=== PATIENT | female | born 1930 | race Caucasian/White ===

== ENCOUNTER 2017-11-22 22:14 | Inpatient (IN) | payer MEDICARE, OTHER ==
--- NOTE | 2017-11-22 23:01 | CT ---
CT BRAIN NONCONTRAST: 11/22/17 HISTORY: 87-year-old female with altered mental status. FINDINGS: There is no midline shift or any other mass effect. There is no evidence of acute intracranial hemor rhage, large cortical infarct, obstructive hydrocephalus, or extraaxial fluid collection. The calvar ium is intact. There is diffuse parenchymal volume loss. There are low attenuation areas in the whi te matter. 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 IMPRESSION: 1) No acute intracranial findings. 2) Involutional changes and chronic ischemic white matter changes. jn [] POS: JIN
--- NOTE | 2017-11-22 23:06 | RAD ---
RADIOGRAPH CHEST 1 VIEW: 11/22/17 HISTORY: 87-year-old female with altered mental status. FINDINGS: There is cardiomegaly. There is no evidence of air space density, pulmonary edema, or pneumothorax. T he lateral costophrenic angles are sharp. IMPRESSION: 1) No acute pulmonary findings. 2) Cardiomegaly without congestive heart failure. gretel [] POS: JIN
[2017-11-22 23:16] LABS: #Monocytes 0.9 thou/uL (0.11-0.59); #Neutrophils 5.5 thou/uL (1.40-6.50); %Basophils 0.5 % (0.0-1.0); %Eosinophils 0.1 % (0.0-10.0); %Lymphocytes 31.9 % (21.0-51.0); %Monocytes 9.3 % (0.0-10.0); %Neutrophils 58.1 % (42.0-75.0); Mean Corpuscular HGB CONC 33.7 g/dL (32.0-36.0); Mean Corpuscular Hemoglobin 29.1 pg (27.0-31.0); Mean Corpuscular Volume 86.4 fl (81.0-99.0); Mean Platelet Volume 6.4 fL (7.4-10.4); Platelet Count 325 thou/uL (130-400); RBC Distribution Width 13.2 % (11.5-14.5); Red Blood Cell (RBC) Count 3.44 mill/uL (4.20-5.40); White Blood Cell (WBC) Count 9.4 thou/uL (4.8-10.8)
[2017-11-22 23:38] LABS: ALT (SGPT) 8 U/L (8-55); AST (SGOT) 11 U/L (5-34); Alkaline Phosphatase 92 U/L (40-150); Anion Gap 13 mmol/L (10-20); BUN (Urea Nitrogen) 26 mg/dL (9.8-20.1); Bilirubin, Total 0.5 mg/dL (0.2-1.2); CK (CPK) 34 U/L (29-168); Calc. Creatinine Clearance 0 mL/min (70-130); Calcium 8.6 mg/dL (7.8-10.44); Carbon Dioxide 23 mmol/L (23-31); Chloride 92 mmol/L (98-107); Estimated GFR-MDRD 50; Globulin 3.1 g/dL (2.4-3.5); Glucose 115 mg/dL (83-110); Potassium 4.5 mmol/L (3.5-5.1); Protein, Total 7.1 g/dL (6.0-8.3); Sodium 123 mmol/L (136-145)
[2017-11-22 23:46] LABS: CKMB 0.6 ng/mL (0-6.6); Troponin I Less than 0.010 ng/mL (< 0.028)
[2017-11-22 23:47] LABS: Bilirubin Negative (Negative); Blood, Urine Trace (Negative); Clarity CLOUDY (Clear); Glucose, Urine (Dipstick) Negative (Negative); Leukocyte Large (Negative); Nitrite Negative (Negative); Protein, Urine (Dipstick) 30 mg/dL (Neg-Trace); Urobilinogen 0.2 mg/dL (0.2-1.0)
[2017-11-22 23:49] LABS: Bacteria/HPF 4+ HPF (None Seen); Squamous Epithelial None Seen HPF (0-3)
[2017-11-22 23:58] LABS: Pathc Cast-AUWi Flag 5.51 (0-2.49)
[2017-11-23 00:07] LABS: Hyaline Casts/LPF 0-3 HYALINE CAST LPF (0-3 Hyaline); Manual Microscopic Reviewed? No Path Casts Seen; RBC/HPF None Seen HPF (0-3)
[2017-11-23] MEDS ORDERED: Sodium Chloride 0.9% 1,000 ML IV SCH (01:57)
[2017-11-23] MEDS ORDERED: Ondansetron ODT 4 MG TAB SL PRN (01:57)
[2017-11-23] MEDS ORDERED: Acetaminophen 325 MG TAB PO PRN (01:57)
[2017-11-23] MEDS ORDERED: Ondansetron HCl/PF 4 MG/2 ML Vial IVP PRN (01:57)
[2017-11-23 02:18] VITALS: BMI 24.5
[2017-11-23] MEDS ORDERED: Prevnar 13-Val Conj/PF 0.5 ML SYRINGE IM ONE (09:00)
[2017-11-23] MEDS ORDERED: Guaifenesin DM 100-10/5 ML UDCUP PO PRN (10:38)
--- NOTE | 2017-11-23 13:02 | HP ---
REASON FOR ADMISSION: Altered mental state, hyponatremia, urinary tract infection, and compression fracture. HISTORY OF PRESENTING ILLNESS: Please note majority of this history is obtained by talking to patient's daughter who is here at bedside. The patient apparently got diagnosed with compression fracture 2 weeks back. She had gone to see Dr. Silverman, her primary care physician and had an MRI done which confirmed the same. She is waiting for a specialist appointment on the . The patient was on tramadol for pain and also had recent urinary tract infection for which she was on ciprofloxacin. She was having trouble getting up and was using wheelchair from last two weeks. She normally walks by herself and is fully oriented and takes care of herself. Yesterday, she got disoriented and became very lethargic and drowsy. No complaints of any specific weakness as such. Currently, she is coming around this morning. She is able to recognize her kids at bedside. She is able to name her grandkids at present. Still feels weak. No complaints of chest pain, palpitation, PND or orthopnea. No complaints of fever as such now. PAST MEDICAL AND SURGICAL HISTORY: Compression fracture diagnosed 2 weeks back , hypertension, dyslipidemia, GERD, frequent urinary tract infections, right leg surgery for fracture, left leg surgery for femoral fracture, right arm surgery done 20 years ago for fracture, appendectomy. CURRENT MEDICATIONS: The patient is on Norvasc 5 mg daily, atenolol 50 mg twice daily, Pravachol 40 mg at bedtime, losartan 100 mg daily, Ultram 50 mg q.4 hourly p.r.n., Protonix 40 mg daily, ciprofloxacin 500 mg twice daily. ALLERGIES: CODEINE, KEFLEX, PENICILLIN, and SULFA. PERSONAL HISTORY: Does not abuse alcohol or drugs. No history of smoking. She lives by herself and is and independent of activities of daily living prior to her sustaining compression fracture 2 weeks ago. FAMILY HISTORY: Mother of colon cancer in her 50s. Father when she was very little. He was suspected to have myocardial infarction. REVIEW OF SYSTEMS: The following complete review of systems was negative, unless otherwise mentioned in the HPI or below: Constitutional: Weight loss or gain, ability to conduct usual activities. Skin: Rash, itching. Eyes: Double vision, pain. ENT/Mouth: Nose bleeding, neck stiffness, pain, tenderness. Cardiovascular: Palpitations, dyspnea on exertion, orthopnea. Respiratory: Shortness of breath, wheezing, cough, hemoptysis, fever or night sweats. Gastrointestinal: Poor appetite, abdominal pain, heartburn, nausea, vomiting, constipation, or diarrhea. Genitourinary: Urgency, frequency, dysuria, nocturia. Musculoskeletal: Pain, swelling. Neurologic/Psychiatric: Anxiety, depression. Allergy/Immunologic: Skin rash, bleeding tendency. PHYSICAL EXAMINATION: GENERAL: The patient is an 87-year-old female who is currently not in any acute distress. VITAL SIGNS: Blood pressure 120/40, pulse 68 per minute, respiratory rate 18 per minute, temperature 98.9 degrees Fahrenheit, saturating 99% on room air. NECK: Supple, no elevated JVD. EYES: Extraocular muscles intact. Pupils reacting to light. ORAL CAVITY: Mucous membranes are dry. No exudates or congestion. CARDIOVASCULAR SYSTEM: S1, S2 heard. Regular rhythm. RESPIRATORY SYSTEM: Air entry 1+ bilaterally. No rales or rhonchi. ABDOMEN: Soft, bowel sounds heard. No tenderness, rigidity or guarding. EXTREMITIES: No peripheral edema or calf tenderness. VASCULAR SYSTEM: Peripheral pulses 1+ bilateral, no ischemic ulcerations or gangrene. CENTRAL NERVOUS SYSTEM: No gross focal deficits seen. Patient is lethargic, but fairly oriented at present. PSYCHIATRIC SYSTEM: The patient's mood is euthymic. No hallucinations or delusions. LABORATORY DATA AND IMAGING DATA: White count of 9, hemoglobin and hematocrit 10 and 29, platelet count 325 with 58% neutrophils, MCV is 86. Sodium 123, serum bicarbonate 23, chloride 92, BUN 26, creatinine 1.0. Serum glucose 115. Cardiac enzymes x1 negative. TSH 1.04, albumin is 4.0. UA shows large leukocyte esterase with more than 50 wbc's and 4+ bacteria. Chest x-ray done shows mild cardiomegaly; otherwise no acute infiltrate. CT brain done shows no acute intracranial findings. CLINICAL IMPRESSION AND PLAN: The patient is being admitted to medical floor for acute encephalopathy, urinary tract infection, severe dehydration, and hyponatremia. We will gently hydrate her with normal saline at 70 mL per hour. The patient also might be sensitive for Ultram and we will switch her over to lidocaine patch along with Motrin 400 mg twice daily. We will continue her ciprofloxacin. We will obtain a urine culture. We will also continue her atenolol and Lipitor as before. Neurosurgical consultation with Dr. Heath will be requested for her compression fracture. We will try to obtain her MRI results from Dr. Silverman's office in [place]. We will monitor her electrolytes closely. Code status is FULL. I have discussed this with the patient. The power of grated cheese maker is her daughter. MARIANELA
[2017-11-23] MEDS: Sodium Chloride 0.9% 1,000 ML IV SCH (15:06)
[2017-11-23] MEDS: Lidocaine 5% Patch TD SCH (15:06)
[2017-11-23] MEDS ORDERED: Atenolol 50 MG TAB PO SCH (18:30)
[2017-11-23] MEDS: Ibuprofen 200 MG TAB PO SCH (20:53)
[2017-11-23] MEDS: Ciprofloxacin 500 MG TAB PO SCH (20:53)
[2017-11-23] MEDS: Atorvastatin Calcium 10 MG TAB PO SCH (20:53)
[2017-11-23] MEDS: Docusate 100 MG CAP PO SCH (20:53)
[2017-11-23] MEDS ORDERED: Famotidine 20 MG TAB PO SCH (21:00)
--- NOTE | 2017-11-23 22:39 | CON ---
DATE OF CONSULTATION: 11/23/2017 Dick Varela PA-C dictating for Dr. Rex Heath. This is a 30-minute initial patient evaluation, which greater than 50% of the exam was spent in couns eling and coordinating patient's care. Remainder of the exam was spent in review of patient's medica l records and appropriate imaging studies. CHIEF COMPLAINT: Altered mental status and low back pain. HISTORY OF PRESENT ILLNESS: Ms. Aburto is a pleasant 87-year-old female, who originally presented wi th altered mental status and dehydration. She was later found to have negative head CT, but dehydrat ion and UTI. She also complained of some back pain and informed the admitting physician that she has a known L3 burst fracture. She was evaluated by her primary care provider, who ordered an MRI of th e lumbar spine at [facility]. Review of this shows perhaps a component of acute L3 burst fractur e without significant retropulsion into the canal or significant stenosis of the canal. She currentl y complains of some occasional right anterior thigh pain, although this is significantly improved sin ce resting while in the hospital over the past several hours. She complains of minimal low back pain . Her daughter helps to provide a majority of the history. She states that the patient is less inte ractive and less verbal than she normally is. PHYSICAL EXAMINATION: The patient is awake, alert, and attempts to be appropriate. Her GCS currentl y is 15, although, she is intermittently confused. She is oriented to person and [place], but believes she is in the hospital in [place] and that the year is 1988 and it is Sunday. She does have good strength in the bilateral upper and bilateral lower extremities with intact sensation to light touch throughout. She has no worrisome myelopathic features on exam including negative Spence's bilateral ly and no increased tone. Gait was not tested. DIAGNOSIS: L3 burst fracture with low back pain and occasional right anterior thigh pain. PLAN: I have discussed the patient's case and imaging with Dr. Heath. At this time, we will order a clamshell TLSO brace to be fitted by [facility]. The patient will wear this anytime she is out of bed. I would like them to hold on mobilizing until the patient is fitted for a brace. Once she has been f itted, we would like her to work diligently with physical therapy. Highly unlikely that the patient will require surgery for this fracture given the fact that there is no malalignment of the fracture a nd that she has significant osteoporosis, makes her a poor spinal fusion candidate. I discussed this in great detail with the patient and her family and they are appreciative of the workup. At this ti me, no need for repeat studies and we will arrange for a 2-week followup in our outpatient clinic, bu t we will continue to follow the patient intermittently while she is in the hospital. Please call wi th any questions or changes in patient's exam.
[2017-11-24] MEDS: Lidocaine Patch Removal 1 EACH TOP SCH (01:05)
[2017-11-24] MEDS: Sodium Chloride 0.9% 1,000 ML IV SCH ×2 (01:46→05:11)
[2017-11-24] MEDS: Ciprofloxacin 500 MG TAB PO SCH ×2 (05:12→20:05)
[2017-11-24 05:21] LABS: #Eosinphils 0.1 thou/uL (0.0-0.7); #Lymphocytes 2.2 thou/uL (1.20-3.40); #Monocytes 0.7 thou/uL (0.11-0.59); #Neutrophils 3.8 thou/uL (1.40-6.50); %Basophils 0.2 % (0.0-1.0); %Eosinophils 1.2 % (0.0-10.0); %Lymphocytes 32.6 % (21.0-51.0); %Monocytes 10.6 % (0.0-10.0); %Neutrophils 55.4 % (42.0-75.0); Hemoglobin 9.2 g/dL (12.0-16.0); Mean Corpuscular HGB CONC 33.7 g/dL (32.0-36.0); Mean Corpuscular Hemoglobin 29.2 pg (27.0-31.0); Mean Corpuscular Volume 86.6 fl (81.0-99.0); Mean Platelet Volume 6.4 fL (7.4-10.4); Platelet Count 263 thou/uL (130-400); RBC Distribution Width 13.2 % (11.5-14.5); Red Blood Cell (RBC) Count 3.15 mill/uL (4.20-5.40); White Blood Cell (WBC) Count 6.8 thou/uL (4.8-10.8)
[2017-11-24 05:28] LABS: Anion Gap 10 mmol/L (10-20); BUN (Urea Nitrogen) 15 mg/dL (9.8-20.1); Calc. Creatinine Clearance 52 mL/min (70-130); Calcium 7.9 mg/dL (7.8-10.44); Carbon Dioxide 21 mmol/L (23-31); Chloride 102 mmol/L (98-107); Estimated GFR-MDRD 69; Glucose 104 mg/dL (83-110); Potassium 4.3 mmol/L (3.5-5.1); Sodium 129 mmol/L (136-145)
[2017-11-24] MEDS: Atenolol 50 MG TAB PO SCH (08:56)
[2017-11-24] MEDS: Enoxaparin Sodium 40 MG/0.4 ML SYRINGE SC SCH (08:57)
[2017-11-24] MEDS: Ibuprofen 200 MG TAB PO SCH ×2 (08:57→20:06)
[2017-11-24] MEDS: Docusate 100 MG CAP PO SCH ×2 (08:57→20:05)
--- NOTE | 2017-11-24 13:55 | PDOC.PN ---
- Subjective Encounter Start Date: 11/24/17 Encounter Start Time: 10:20 Subjective: awake and oriented -: feels better -: is tolerating oral diet now - Objective Resuscitation Status: Resuscitation Status FULL:Full Resuscitation MAR Reviewed: Yes Vital Signs & Weight: Vital Signs (12 hours) Temp Pulse Resp BP BP Pulse Ox 11/24/17 08:56 72 153/72 H 11/24/17 08:34 97.5 F L 72 16 153/65 H 98 11/24/17 08:00 97.5 F L 72 16 11/24/17 05:00 98.5 F 72 18 131/62 99 Weight Weight 138 lb 7 oz I&O: 11/23/17 11/24/17 11/25/17 06:59 06:59 06:59 Intake Total 740 Balance 740 Result Diagrams: 11/24/17 05:03 11/24/17 05:03 Phys Exam - Physical Examination HEENT: PERRLA, moist MMs Neck: no JVD, supple Respiratory: no wheezing, no rales Cardiovascular: RRR, no significant murmur Gastrointestinal: soft, non-tender, positive bowel sounds Musculoskeletal: no edema, pulses present Neurological: non-focal, moves all 4 limbs Psychiatric: normal affect, A&O x 3 Dx/Plan (1) Acute encephalopathy Code(s): G93.40 - ENCEPHALOPATHY, UNSPECIFIED Status: Resolved (2) Severe dehydration Code(s): E86.0 - DEHYDRATION Status: Resolved (3) Hyponatremia Code(s): E87.1 - HYPO-OSMOLALITY AND HYPONATREMIA Status: Acute Comment: resolving (4) L3 vertebral fracture Code(s): S32.039A - UNSP FRACTURE OF THIRD LUMBAR VERTEBRA, INIT FOR CLOS FX Status: Acute Qualifiers: Encounter type: subsequent encounter Fracture type: closed Fracture morphology: burst- stable (5) HTN (hypertension) Code(s): I10 - ESSENTIAL (PRIMARY) HYPERTENSION Status: Chronic Qualifiers: Hypertension type: essential hypertension Qualified Code(s): I10 - Essential (primary) hypertension - Plan has tslo brace fitted -: to amb with PT as tolerated, rehab eval -: pain is better on motrin bid and lidocaine patch -: encourage po intake -: sodium has come up to 129, dc iv fluids, family updated at bedside * . Review of Systems - Medications/Allergies Allergies/Adverse Reactions: Allergies Allergy/AdvReac Type Severity Reaction Status Date / Time cephalexin [From Keflex] Allergy Verified 11/23/17 02:14 codeine Allergy Verified 11/23/17 02:14 Penicillins Allergy Verified 11/23/17 02:14 Sulfa (Sulfonamide Allergy Verified 11/23/17 02:14 Antibiotics) Medications: Current Medications Acetaminophen (Tylenol) 650 mg PO Q4H PRN PRN Reason: Headache/Fever or Pain Atenolol (Tenormin) 50 mg PO DAILY [facility] Last Admin: 11/24/17 08:56 Dose: 50 mg Atorvastatin Calcium (Lipitor) 10 mg PO HS [facility] Last Admin: 11/23/17 20:53 Dose: 10 mg Ciprofloxacin (Cipro) 500 mg PO 0600,2000 [facility] Last Admin: 11/24/17 05:12 Dose: 500 mg Docusate Sodium (Colace) 100 mg PO BID [facility] Last Admin: 11/24/17 08:57 Dose: 100 mg Enoxaparin Sodium (Lovenox) 40 mg SC 0900 [facility] Last Admin: 11/24/17 08:57 Dose: 40 mg Famotidine (Pepcid) 20 mg PO Q24HR [facility] Last Admin: 11/23/17 20:53 Dose: 20 mg Guaifenesin/Dextromethorphan (Robitussin Dm) 15 ml PO Q4H PRN PRN Reason: Cough Sodium Chloride (Normal Saline 0.9%) 1,000 mls @ 70 mls/hr IV .[id number] [facility] Last Admin: 11/24/17 05:11 Dose: 1,000 mls Ibuprofen (Motrin) 400 mg PO BID [facility] Last Admin: 11/24/17 08:57 Dose: 400 mg Lidocaine (Lidoderm 5% Patch) 1 patch TD 1300 [facility] Last Admin: 11/23/17 15:06 Dose: 1 patch Miscellaneous Medication (Lidocaine Patch Removal) 1 each TOP 0100 [facility] Last Admin: 11/24/17 01:05 Dose: 1 each
--- NOTE | 2017-11-24 14:52 | PRG ---
DATE OF SERVICE: 11/24/2017 This is a 30-minute note, in which 30 minutes were spent in review of the imaging record, evaluation, examination of the patient, and formulation of a plan. Greater than 50% of the time was spent on co unseling on Digna Aburto. CHIEF COMPLAINT: L3 burst fracture. HISTORY OF PRESENT ILLNESS: I reviewed the notes of my colleague Dick Varela PA-C, and agree wit h its content. Ms. Aburto is an 87-year-old woman, who sustained a fall and an L3 fracture. She pre sented with altered mental status and urinary tract infection. She already had followup set up with us. We have arranged for brace. There is minimal retropulsion, and while there is moderate loss of height, there is no worry. There is no worrisome Matthews angle deformity. She has neurologically been at her baseline, moving her extremities. IMPRESSION AND PLAN: I will arrange followup in my clinic in 10 days with x-rays upright AP and late ral lumbar spine x-rays. She will wear a brace whenever she is out of bed. I will see her in 10 day s. DIAGNOSIS: L3 fracture.
[2017-11-24] MEDS: Lidocaine 5% Patch TD SCH (17:08)
[2017-11-24] MEDS: Atorvastatin Calcium 10 MG TAB PO SCH (20:05)
[2017-11-24] MEDS: Famotidine 20 MG TAB PO SCH (20:05)
[2017-11-24] MEDS ORDERED: Famotidine 20 MG TAB PO SCH (21:00)
[2017-11-25] MEDS: Acetaminophen 325 MG TAB PO PRN (03:05)
[2017-11-25] MEDS: Lidocaine Patch Removal 1 EACH TOP SCH (03:07)
[2017-11-25] MEDS: Ciprofloxacin 500 MG TAB PO SCH ×2 (05:09→20:30)
[2017-11-25 05:12] LABS: #Basophils 0.1 thou/uL (0.0-0.2); #Eosinphils 0.2 thou/uL (0.0-0.7); #Lymphocytes 2.1 thou/uL (1.20-3.40); #Monocytes 0.6 thou/uL (0.11-0.59); %Basophils 0.9 % (0.0-1.0); %Eosinophils 3.1 % (0.0-10.0); %Lymphocytes 35.3 % (21.0-51.0); %Monocytes 10.5 % (0.0-10.0); %Neutrophils 50.2 % (42.0-75.0); Hemoglobin 9.5 g/dL (12.0-16.0); Mean Corpuscular HGB CONC 35.2 g/dL (32.0-36.0); Mean Corpuscular Hemoglobin 31.1 pg (27.0-31.0); Mean Corpuscular Volume 88.4 fl (81.0-99.0); Platelet Count 270 thou/uL (130-400); Red Blood Cell (RBC) Count 3.03 mill/uL (4.20-5.40)
[2017-11-25 05:22] LABS: Anion Gap 12 mmol/L (10-20); BUN (Urea Nitrogen) 15 mg/dL (9.8-20.1); Calc. Creatinine Clearance 47 mL/min (70-130); Calcium 8.3 mg/dL (7.8-10.44); Carbon Dioxide 21 mmol/L (23-31); Chloride 101 mmol/L (98-107); Estimated GFR-MDRD 62; Glucose 102 mg/dL (83-110); Potassium 4.4 mmol/L (3.5-5.1); Sodium 130 mmol/L (136-145)
[2017-11-25] MEDS: Atenolol 50 MG TAB PO SCH (07:38)
[2017-11-25] MEDS: Docusate 100 MG CAP PO SCH ×2 (07:38→20:30)
[2017-11-25] MEDS: Enoxaparin Sodium 40 MG/0.4 ML SYRINGE SC SCH (07:39)
[2017-11-25] MEDS: Ibuprofen 200 MG TAB PO SCH ×2 (07:39→20:31)
[2017-11-25] MEDS: Sodium Chloride 0.9% 1,000 ML IV SCH (07:43)
[2017-11-25] MEDS: Lidocaine 5% Patch TD SCH (14:38)
--- NOTE | 2017-11-25 15:14 | PDOC.PN ---
- Subjective Encounter Start Date: 11/25/17 Encounter Start Time: 10:00 Pt seen for followup re: UTI. Denies chest pain, shortness of breath, fevers or chills. - Objective Resuscitation Status: Resuscitation Status FULL:Full Resuscitation MAR Reviewed: Yes Vital Signs & Weight: Vital Signs (12 hours) Temp Pulse Resp BP BP Pulse Ox 11/25/17 07:44 98.3 F 75 16 11/25/17 07:40 98.3 F 75 16 151/67 H 98 11/25/17 07:38 75 151/67 H 11/25/17 03:45 97.3 F L 70 18 131/73 97 Weight Weight 138 lb 7 oz Result Diagrams: 11/26/17 09:35 11/26/17 09:35 Additional Labs: Labs reviewed by me Phys Exam - Physical Examination Constitutional: NAD HEENT: moist MMs Neck: supple Respiratory: clear to auscultation bilateral Cardiovascular: RRR Gastrointestinal: soft Musculoskeletal: pulses present Neurological: moves all 4 limbs Psychiatric: normal affect Dx/Plan (1) UTI (urinary tract infection) Status: Acute Comment: continue ciprofloxacin, await cultures (2) L3 vertebral fracture Code(s): S32.039A - UNSP FRACTURE OF THIRD LUMBAR VERTEBRA, INIT FOR CLOS FX Status: Acute Qualifiers: Encounter type: subsequent encounter Fracture type: closed Fracture morphology: burst- stable Comment: to followup with neurosurgery service as outpatient (3) HTN (hypertension) Code(s): I10 - ESSENTIAL (PRIMARY) HYPERTENSION Status: Chronic Qualifiers: Hypertension type: essential hypertension Qualified Code(s): I10 - Essential (primary) hypertension Comment: Monitor vital signs, titrate antihypertensives as needed (4) Hyponatremia Code(s): E87.1 - HYPO-OSMOLALITY AND HYPONATREMIA Status: Acute Comment: sodium improving, 130 today (5) Acute encephalopathy Code(s): G93.40 - ENCEPHALOPATHY, UNSPECIFIED Status: Resolved - Plan * . Review of Systems - Review of Systems Respiratory: negative: Cough, Shortness of Breath, Hemoptysis, SOB with Excertion, Pleuritic Pain, Wheezing Cardiovascular: negative: chest pain, palpitations, orthopnea, paroxysmal nocturnal dyspnea, edema, light headedness, other - Medications/Allergies Allergies/Adverse Reactions: Allergies Allergy/AdvReac Type Severity Reaction Status Date / Time cephalexin [From Keflex] Allergy Verified 11/23/17 02:14 codeine Allergy Verified 11/23/17 02:14 Penicillins Allergy Verified 11/23/17 02:14 Sulfa (Sulfonamide Allergy Verified 11/23/17 02:14 Antibiotics) Medications: Current Medications Acetaminophen (Tylenol) 650 mg PO Q4H PRN PRN Reason: Headache/Fever or Pain Last Admin: 11/25/17 03:05 Dose: 650 mg Atenolol (Tenormin) 50 mg PO DAILY [facility] Last Admin: 11/25/17 07:38 Dose: 50 mg Atorvastatin Calcium (Lipitor) 10 mg PO HS [facility] Last Admin: 11/24/17 20:05 Dose: 10 mg Ciprofloxacin (Cipro) 500 mg PO 0600,2000 [facility] Last Admin: 11/25/17 05:09 Dose: 500 mg Docusate Sodium (Colace) 100 mg PO BID [facility] Last Admin: 11/25/17 07:38 Dose: 100 mg Enoxaparin Sodium (Lovenox) 40 mg SC 0900 [facility] Last Admin: 11/25/17 07:39 Dose: Not Given Famotidine (Pepcid) 20 mg PO 2100 [facility] Last Admin: 11/24/17 20:05 Dose: 20 mg Guaifenesin/Dextromethorphan (Robitussin Dm) 15 ml PO Q4H PRN PRN Reason: Cough Ibuprofen (Motrin) 400 mg PO BID [facility] Last Admin: 11/25/17 07:39 Dose: Not Given Lidocaine (Lidoderm 5% Patch) 1 patch TD 1300 [facility] Last Admin: 11/25/17 14:38 Dose: 1 patch Miscellaneous Medication (Lidocaine Patch Removal) 1 each TOP 0100 [facility] Last Admin: 11/25/17 03:07 Dose: 1 each
[2017-11-25] MEDS: Famotidine 20 MG TAB PO SCH (20:29)
[2017-11-25] MEDS: Atorvastatin Calcium 10 MG TAB PO SCH (20:30)
[2017-11-26] MEDS: Lidocaine Patch Removal 1 EACH TOP SCH (02:14)
[2017-11-26] MEDS: Ciprofloxacin 500 MG TAB PO SCH (05:24)
[2017-11-26] MEDS: Docusate 100 MG CAP PO SCH (08:17)
[2017-11-26] MEDS: Ibuprofen 200 MG TAB PO SCH (08:18)
[2017-11-26] MEDS: Enoxaparin Sodium 40 MG/0.4 ML SYRINGE SC SCH (08:19)
[2017-11-26] MEDS: Acetaminophen 325 MG TAB PO PRN ×2 (08:25→16:33)
[2017-11-26] MEDS: Atenolol 50 MG TAB PO SCH (08:40)
[2017-11-26] MEDS ORDERED: Nitrofurantoin Monohyd/M-Cryst 100 MG CAP PO SCH ×3 (09:15→21:00)
[2017-11-26 09:44] LABS: #Eosinphils 0.1 thou/uL (0.0-0.7); #Monocytes 0.7 thou/uL (0.11-0.59); #Neutrophils 4.5 thou/uL (1.40-6.50); %Basophils 0.4 % (0.0-1.0); %Monocytes 9.1 % (0.0-10.0); %Neutrophils 61.5 % (42.0-75.0); Mean Corpuscular Hemoglobin 29.4 pg (27.0-31.0); Mean Corpuscular Volume 88.9 fl (81.0-99.0); Mean Platelet Volume 6.8 fL (7.4-10.4); Platelet Count 320 thou/uL (130-400); RBC Distribution Width 13.2 % (11.5-14.5); Red Blood Cell (RBC) Count 3.39 mill/uL (4.20-5.40); White Blood Cell (WBC) Count 7.3 thou/uL (4.8-10.8)
[2017-11-26 10:06] LABS: Anion Gap 14 mmol/L (10-20); BUN (Urea Nitrogen) 17 mg/dL (9.8-20.1); Calc. Creatinine Clearance 38 mL/min (70-130); Calcium 8.8 mg/dL (7.8-10.44); Carbon Dioxide 21 mmol/L (23-31); Chloride 100 mmol/L (98-107); Estimated GFR-MDRD 48; Glucose 134 mg/dL (83-110); Potassium 3.9 mmol/L (3.5-5.1); Sodium 131 mmol/L (136-145)
[2017-11-26] MEDS: Lidocaine 5% Patch TD SCH (12:49)
[2017-11-26 16:54] VITALS: BP 146/73; TEMP 98.7
--- NOTE | 2017-11-27 02:24 | DIS ---
DATE OF ADMISSION: 11/23/2017 DATE OF DISCHARGE: 11/26/2017 PRIMARY CARE PROVIDER: [facility]. DISCHARGE DIAGNOSES: 1. Acute encephalopathy. 2. Urinary tract infection. 3. Hyponatremia. 4. L3 vertebral compression fractures. CONDITION OF THE PATIENT ON THE DAY OF DISCHARGE: Stable. I assessed Ms. Aburto on the day of disch arge. She denies any chest pain or shortness of breath. Vital signs are stable. S1 and S2 are hear d, regular. Lungs are clear to auscultation bilaterally. CONSULTATIONS DURING THIS HOSPITALIZATION: Neurosurgery, Dr. Rex Heath. DISCHARGE MEDICATIONS: Nitrofurantoin 100 mg 2 times a day for 13 more doses, Tylenol 650 mg every 4 hours as needed, atenolol 50 mg daily, calcitonin 3.7 mL nasal spray as directed, Colace 100 mg 2 ti mes a day, lidocaine 5% patch daily, Protonix 40 mg daily, and pravastatin 40 mg at bedtime. HOSPITAL COURSE: Ms. Aburto is a pleasant 87-year-old lady who was admitted to [facility] for acute encephalopathy and urinary tract infection. She had a preexisting L3 vertebra l fracture. She was initially treated with ciprofloxacin. Urine cultures grew Escherichia coli that were resistant to fluoroquinolones and ampicillin, but sensitive to amikacin, cefepime, cefoxitin, c eftazidime, ceftriaxone, gentamicin, meropenem, nitrofurantoin, Zosyn, tobramycin, and trimethoprim/s ulfamethoxazole. She has been started on Macrobid. She was seen by Neurosurgery for L3 vertebral fracture. She was fitted with a TLSO brace. Neurosurg katharine will arrange follow up in clinic in 10 days with x-rays upright AP and lateral lumbar spine x-ray s. She will need to wear the brace whenever she is out of bed. She was evaluated by rehabilitation services and has been accepted for inpatient rehabilitation. She is being discharged to [facility] for further management. She was also hyponatremic during this hospitalization. Her tramadol was stopped and she was started on lidocaine patch. Sodium level gradually improved to 131 on the day of discharge, from 123 on 09/2017. She had a normal TSH during this hospitalization. Many thanks for allowing me to participate in your patient's care. Please feel free to contact me wi th any questions or concerns. DISCHARGE DESTINATION: [facility]. TOTAL AMOUNT OF TIME SPENT COORDINATING THIS DISCHARGE: Thirty-three minutes.
== END 2017-11-26 18:07 | DRG 689 ==
LOC: ERS 22:14 → T4-B 11-23 00:19
PROVIDERS: ADMIT Internal Medicine; ATTEND Internal Medicine
DX: N39.0 Urinary tract infection, site not specified (principal); G93.40 Encephalopathy, unspecified; E87.1 Hypo-osmolality and hyponatremia; S32.031A Stable burst fracture of third lumbar vertebra, initial encounter for closed fracture; I10 Essential (primary) hypertension; E86.0 Dehydration; E78.5 Hyperlipidemia, unspecified; K21.9 Gastro-esophageal reflux disease without esophagitis; W19.XXXA Unspecified fall, initial encounter; Z79.899 Other long term (current) drug therapy; Z88.5 Allergy status to narcotic agent; Z88.0 Allergy status to penicillin; Z88.2 Allergy status to sulfonamides
CPT/HCPCS: 36415; 51701; 70450; 71045; 80048; 80053; 81003; 81015; 82274; 82553; 84443; 84484; 85025; 87040; 87077; 87081; 87086; 87186; 93005; 94760; 96365; A4353; G8978-GP-CL; G8979-GP-CJ; G8987-GO-CK; G8988-GO-CJ; J1650; J1956; L0639

== ENCOUNTER 2017-12-05 14:37 | Outpatient (CLI) | payer MEDICARE, OTHER ==
--- NOTE | 2017-12-05 15:43 | RAD ---
TWO VIEWS LUMBAR SPINE: 12/05/17 HISTORY: Lumbar burst fracture, S32.001A. AP and lateral views lumbar spine demonstrate a high grade compression fracture of the L3 vertebral b amirah. There is mild anterolisthesis of S1 on S2. There is also superior end plate compression fracture of the L1 vertebral body. There is loss of the normal lordotic curvature of the lumbar spine. Marked atherosclerotic calcification of the abdominal aorta is seen. IMPRESSION: 1. Superior end plate compression fracture of L1. 2. Severe compression fracture of the L3 vertebral body. 3. Mild anterolisthesis of S1 and S2. POS: [facility]
== END 2017-12-05 14:38 | disposition home or self-care (01) ==
LOC: TBSIIMAG 14:37
PROVIDERS: ATTEND Surgery
DX: S32.011A Stable burst fracture of first lumbar vertebra, initial encounter for closed fracture (principal); S32.031A Stable burst fracture of third lumbar vertebra, initial encounter for closed fracture; M43.18 Spondylolisthesis, sacral and sacrococcygeal region
CPT/HCPCS: 72100

== ENCOUNTER 2018-02-06 13:26 | Outpatient (CLI) | payer MEDICARE, OTHER ==
--- NOTE | 2018-02-06 14:16 | RAD ---
2 VIEWS LUMBOSACRAL SPINE: Date: 02/06/18 COMPARISON: 12/05/17. HISTORY: Low back pain and compression fracture. FINDINGS: Two views of the lumbosacral spine with standing were performed. The patient has a compression fractu re of the L3 vertebral body with approximately 75% anterior height loss. This is unchanged compared t o the prior examination. The vertebral bodies demonstrate normal alignment without subluxation. Small to moderate osteophytes are seen at the thoracolumbar junction. IMPRESSION: Stable compression fracture of L3. POS: [facility]
== END 2018-02-06 13:27 | disposition home or self-care (01) ==
LOC: TBSIIMAG 13:26
PROVIDERS: ATTEND Surgery
DX: M80.88XA Other osteoporosis with current pathological fracture, vertebra(e), initial encounter for fracture (principal); S32.039A Unspecified fracture of third lumbar vertebra, initial encounter for closed fracture
CPT/HCPCS: 72100

== ENCOUNTER 2018-09-08 17:42 | Inpatient (IN) | payer MEDICARE, OTHER ==
[2018-09-08] MEDS ORDERED: Atropine Sulfate 1 mg/10 ml Syringe ONE (17:54)
[2018-09-08 19:57] LABS: Bilirubin Negative (Negative); Blood, Urine Negative (Negative); Clarity CLOUDY (Clear); Glucose, Urine (Dipstick) Negative (Negative); Leukocyte Small (Negative); Nitrite Negative (Negative); Protein, Urine (Dipstick) Trace mg/dL (Neg-Trace); Specific Gravity, Urine 1.021 (1.002-1.036); Urobilinogen 0.2 mg/dL (0.2-1.0); pH, Urine 5.5 (5.0-9.0)
[2018-09-08 20:00] LABS: Bacteria/HPF 4+ HPF (None Seen); RBC/HPF 0-3 HPF (0-3); WBC/HPF 21-50 HPF (0-3); Yeast-AUWi Flag 4.9 (0-25.0)
[2018-09-08 20:02] LABS: Hyaline Casts/LPF 0-3 HYALINE CAST LPF (0-3 Hyaline); Manual Microscopic Reviewed? No Path Casts Seen; Pathc Cast-AUWi Flag 3.48 (0-2.49)
[2018-09-08 20:09] LABS: Troponin I 0.042 ng/mL (< 0.028)
[2018-09-08] MEDS ORDERED: Acetaminophen 325 MG TAB ONE (21:06)
[2018-09-08] MEDS ORDERED: Ondansetron ODT 4 MG TAB PO PRN (21:40)
[2018-09-08] MEDS ORDERED: Ondansetron PF 4 MG/2 ML Vial IVP PRN (21:40)
[2018-09-08 23:24] LABS: CKMB 3.7 ng/mL (0-6.6)
[2018-09-09 00:08] VITALS: BMI 26.8
[2018-09-09] MEDS: Acetaminophen 325 MG TAB PO PRN ×4 (00:16→23:41)
[2018-09-09 05:01] LABS: #Basophils 0.1 thou/uL (0.0-0.2); #Eosinphils 0.1 thou/uL (0.0-0.7); #Lymphocytes 2.4 thou/uL (1.20-3.40); #Monocytes 1.1 thou/uL (0.11-0.59); #Neutrophils 5.8 thou/uL (1.40-6.50); %Basophils 0.6 % (0.0-1.0); %Eosinophils 0.9 % (0.0-10.0); %Lymphocytes 25.2 % (21.0-51.0); %Monocytes 11.5 % (0.0-10.0); %Neutrophils 61.8 % (42.0-75.0); Hemoglobin 9.1 g/dL (12.0-16.0); Mean Corpuscular HGB CONC 33.1 g/dL (32.0-36.0); Mean Corpuscular Hemoglobin 29.6 pg (27.0-31.0); Mean Corpuscular Volume 89.5 fL (78.0-98.0); Mean Platelet Volume 8.8 fL (7.4-10.4); Platelet Count 142 thou/uL (130-400); RBC Distribution Width 13.4 % (11.5-14.5); Red Blood Cell (RBC) Count 3.07 mill/uL (4.20-5.40); White Blood Cell (WBC) Count 9.4 thou/uL (4.8-10.8)
[2018-09-09 05:19] LABS: Anion Gap 17 mmol/L (10-20); BUN (Urea Nitrogen) 45 mg/dL (9.8-20.1); Calc. Creatinine Clearance 20 mL/min (70-130); Calcium 8.9 mg/dL (7.8-10.44); Carbon Dioxide 14 mmol/L (23-31); Chloride 102 mmol/L (98-107); Estimated GFR-MDRD 22; Glucose 95 mg/dL (83-110); Potassium 4.1 mmol/L (3.5-5.1); Sodium 129 mmol/L (136-145)
--- NOTE | 2018-09-09 05:48 | HP ---
PRIMARY CARE DOCTOR: The patient goes to the [facility]. CODE STATUS: DNR/DNI. TIME OF EVALUATION: 7:30 p.m. CHIEF COMPLAINT: Syncope and bradycardia. HISTORY OF PRESENT ILLNESS: This is an 88-year-old female patient. The patient has a past medical history of hyperlipidemia, hypertension, frequent UTIs, anemia, squamous cell carcinoma, basal cell carcinoma. The patient came to the hospital after having an episode of syncope. The patient passed out associated with bradycardia. Symptoms improved with atropine. No clear triggers, symptoms started suddenly. REVIEW OF SYSTEMS: CONSTITUTIONAL: No fever, chills, or generalized weakness. RESPIRATORY: No cough, sputum production, or shortness of breath. CARDIOVASCULAR: No chest pain or palpitation. GASTROINTESTINAL: No nausea. No vomiting, diarrhea, or abdominal pain. ALMOND PASTE MIXER: No dizziness, headache, or feeling lightheaded. The patient has syncope. GENITOURINARY: No burning on urination. EXTREMITIES: No leg swelling. All other systems were reviewed and negative except for the findings mentioned above. PAST MEDICAL HISTORY: As mentioned in HPI. PAST SURGICAL HISTORY: Right leg surgery, left leg surgery, right arm surgery, appendectomy, colonoscopy, skin biopsy , total hip arthroplasty. PSYCH HISTORY: No psych history. SOCIAL HISTORY: No alcohol. No drugs. No smoking history. KNOWN ALLERGIES: Cephalexin, codeine, penicillin, sulfa. REPORTED MEDICATIONS: 1. Tylenol. 2. Amlodipine. 3. Atenolol. 4. Aspirin. 5. Calcium. 6. Gabapentin. 7. Losartan. 8. . 9. Raloxifene. 10. VESIcare. PHYSICAL EXAMINATION: VITAL SIGNS: On presentation, blood pressure was 123/38 with heart rate of 40, respiratory rate was 18, temperature 97.4, oxygen saturation 95 on room air. GENERAL APPEARANCE: The patient is alert, oriented, not in acute distress. HEENT: Eyes, normal conjunctivae. Moist oral mucosa. Anicteric. NECK: No JVD. RESPIRATORY: Bilateral air entry. No rales. No wheezes. Symmetric expansion. CARDIOVASCULAR: The patient has been bradycardic. Regular rhythm. No murmurs. No gallops. Mild leg edema. ABDOMEN: Soft. Normal bowel sounds. MUSCULOSKELETAL: Baseline range of motion and strength. No tenderness. SKIN: Warm and intact. No pallor. No rash. No redness. Peripheral pulses are present. Capillary refill seems to be intact. NEUROLOGIC: No evidence of any new focal weakness. Baseline speech. Cranial nerves seem to be intact. PSYCH: The patient has good mood. No anxiety. Optimal judgment. LABORATORY DATA: EKG was reviewed. The patient has junctional bradycardia at the rate of 40, ND indeterminate, QRS 90, QT corrected 418. Last reviewed GFR was 22. Glucose 122, BUN 42, creatinine 2.27, sodium 130, potassium 4.2, chloride 102, carbon dioxide was 13, calcium 9.1, bilirubin 0.4, alkaline phosphatase 59. LFTs were normal. Troponin was normal. White count 12.7, hemoglobin 9.7, hematocrit 29.3, MCV 86.7, platelet count 189. Chest x-ray, moderate cardiomegaly with no overt congestive heart failure. No acute cardiopulmonary process. Chest x-ray was reviewed. The patient has moderate cardiomegaly, mild aortic knob atherosclerosis, and chronic left lung small calcified granuloma. No acute infiltrate, central vascular congestion, pneumothorax, or pleural effusion. No acute soft tissue or osseous abnormalities identified. ASSESSMENT AND PLAN: The patient will be placed in the hospital with following medical problems: 1. Syncope with junctional bradycardia. The patient has responded to atropine, that will be continued to be given. For now, we will consult Cardiology and will follow their recommendations. The patient may need pacemaker. 2. Urinary tract infection. The patient has positive urine. We will treat the patient with antibiotic. 3. Acute kidney injury. The patient has elevated BUN and creatinine. Last creatinine is 2.27 prior to transfer, and in previous records the creatinine was normal. We will give some hydration. We will monitor kidney failure, we will treat accordingly. 4. Hyponatremia. Sodium 130, this is mild, we will treat accordingly. We will monitor. 5. Severe metabolic acidosis with CO2 of 13. This is likely due to acute kidney injury. 6. Controlled hypertension. We will reconcile home medications. We will treat accordingly. We would not treat aggressively as the patient has been getting hypotensive due to bradycardia. 7. Hyperlipidemia. Low-cholesterol diet is advised. Reconcile home medications. 8. Deep venous thrombosis prophylaxis. Job ID: [id number]
[2018-09-09] MEDS: Enoxaparin Sodium 40 MG/0.4 ML SYRINGE SC SCH (09:14)
--- NOTE | 2018-09-09 09:22 | PDOC.PULCN ---
Pulmonology Consult: HPI - Date of Consult Date: 09/09/18 Time: 09:00 - Consult Details Reason for Consult: bradycardia Requesting Physician: margarita - History of Present Illness HPI: NAMAN BERKOWITZ is a 88 year-old F w/ PMH including anemia, htn, and hld who comes in after having 2 syncopal episodes this weekend. She states she was standing up and all the sudden felt weak and fell to the ground. This happened on both sunday and sunday, she was able to get right back up on Sunday and so she did not come in. On sunday she thinks she may have lost consciousness but does not think it was for long. She called for help because she could not get back up and was taken to the ED. She states this has never happened in the past. Denies chest pain. Has mild sob. No fevers, chills, sweats or cough. She states she has been told she had a slow heart rate in the past. Dr. Temple's addendum: Pt seen and examined with Dr. Mendez. I have independently confirmed findings of history and physical. Pt presenting with 2 syncopal episodes. Had episode of SVT followed by 10 sec sinus pause and resumption of junctional rhythm at 40 while we were talking to her at bedside. Her beta zana is being held. She will be placed on backup external pacemaker as needed, until a pacemaker is put in later today. aware. Pt's levaquin will be changed to rocephin, due to possible cardiac effects of levaquin. She has a pcn allergy which is itching. Agree with A/P above. 50 minutes time, >50% spent with patient and on unit. Pulmonology Consult: ROS - Review of Systems All systems: reviewed and no additional remarkable complaints except as stated Constitutional: negative: fever, chills, sweats Cardiovascular: light headedness. negative: chest pain, palpitations, edema Respiratory: short of breath. negative: chest tightness, pain on deep breathing , non-productive cough, productive cough, wheezing Pulmonology Consult: PMH Source: patient Past Medical History: HTN, HLD, anemia, SCC of the nose, BCC, recurrent UTIs PSH: rt femur fx, lumbar compression fx - Family History Pertinent family history: father of suspected PA at young age mother of colon cancer at age 50 - Social History Smoking Status: Never smoker Alcohol Use: none Drug Use History: none Living Situation: independent Pulmonology Consult: Meds - Medications MAR Reviewed: Yes Medications: Current Medications Acetaminophen (Tylenol) 650 mg PO Q4H PRN PRN Reason: Headache/Fever/Mild Pain (1-3) Last Admin: 09/09/18 06:59 Dose: 650 mg Enoxaparin Sodium (Lovenox) 40 mg SC 0900 [facility] Last Admin: 09/09/18 09:14 Dose: 40 mg Levofloxacin 750 mg/ Device 150 mls @ 100 mls/hr IVPB Q24HR YASMINE Last Admin: 09/09/18 02:28 Dose: Not Given Ondansetron HCl (Zofran Odt) 4 mg PO Q6H PRN PRN Reason: Nausea/Vomiting Ondansetron HCl (Zofran) 4 mg IVP Q6H PRN PRN Reason: Nausea/Vomiting - Allergies Allergies/Adverse Reactions: Allergies Allergy/AdvReac Type Severity Reaction Status Date / Time cephalexin [From Keflex] Allergy Verified 11/23/17 02:14 codeine Allergy Verified 11/23/17 02:14 Penicillins Allergy Verified 11/23/17 02:14 Sulfa (Sulfonamide Allergy Verified 11/23/17 02:14 Antibiotics) Pulmonology Consult: PE - Physical Exam Constitutional: NAD HEENT: PERRLA, moist MMs Cardiovascular: no significant murmur Deviation from normal: bradycardia, regular rhythm Respiratory: clear to auscultation anteriorly, clear to auscultation bilaterally. negative: decreased breath sounds, stridor, wheezes Gastrointestinal: soft, non-tender, no distention, positive bowel sounds Musculoskeletal: no edema, pulses present Neurological: non-focal, moves all 4 limbs Psychiatric: normal affect, A&O x 3 Skin: no rash, cap refill <2 seconds Pulmonology Consult: Results - Labs Result Diagrams: 09/09/18 04:44 09/09/18 04:44 Pulmonology Consult: A/P - Problem (1) Symptomatic bradycardia Current Visit: Yes Code(s): R00.1 - BRADYCARDIA, UNSPECIFIED Status: Acute (2) Junctional rhythm Current Visit: Yes Code(s): I49.8 - OTHER SPECIFIED CARDIAC ARRHYTHMIAS Status: Acute (3) HTN (hypertension) Current Visit: No Code(s): I10 - ESSENTIAL (PRIMARY) HYPERTENSION Status: Chronic Qualifiers: Hypertension type: essential hypertension Qualified Code(s): I10 - Essential (primary) hypertension - Time Time: 50% of the time was spent in coordination of care (as documented) at patient's floor/unit and/or counseling patient. Time with Patient: greater than 50 minutes - Plan Plan: This is a 69 yo F being admitted for syncope 2/2 junctional bradycardia . 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
[2018-09-09] MEDS ORDERED: Clindamycin/D5W 600 mg/50 ml Premix Bag ONE ×2 (11:33→13:49)
[2018-09-09] MEDS: cefTRIAXone\\ROCEPHIN 1 GM in Sodium Chloride 0.9% 100 ML IVPB SCH (11:53)
--- NOTE | 2018-09-09 13:43 | CON ---
DATE OF CONSULTATION: 09/09/2018 INDICATION FOR CONSULTATION: An 88-year-old female with symptomatic bradycardia and junctional escape rhythm. HISTORY OF PRESENT ILLNESS: Ms. Aburto is a very pleasant female, who I have followed for many years now. She is now 88 years old. She was last seen in the office back in May 2018, at which time she presented for yearly followup. At that time, she had carotid artery evaluation, which showed some plaque in the bilateral carotid arteries with internal carotid artery less than 50%. She did not have any significant symptoms. She had an echocardiogram last in April 2017, which showed a normal ejection fraction about 60% with moderate mitral and tricuspid valve regurgitation, mild aortic valve sclerosis, and some thickening of the anterior mitral valve leaflet. Otherwise, she has been doing quite well. Her last EKG showed a sinus rhythm with a heart rate of approximately 63 beats per minute without any acute changes. She has had no history of coronary artery disease in the past. She does have a history of hypertension and hyperlipidemia. She has been at home apparently recently and Sunday not feeling very well. She had some diarrhea. She then became very dizzy, lightheaded, somewhat short of breath when she got up and then it was noted to have severe bradycardia or she noted her heart rate is going fast with palpitations. She presented to the emergency room, at which time she was noted to have bradycardia with junctional rhythm with heart rates in 30s and 40s. She was then admitted to the hospital for observation or at least to the telemetry for observation. She continued throughout the night to have bradycardia with some episodes of tachy-arlette, some episodes of SVT. This morning, she had an episode of SVT and then was it broke. She had a significant pause more than 5 seconds and almost had syncopal episode. Since that time she has had some more bradycardia and also the heart rates anywhere between 30s to 90s. When the heart rate is very slow, she also becomes lightheaded. She is advised at this time to undergo a dual-chamber pacemaker insertion. She has been on beta-blockers in the past. Her last dose of beta zana was yesterday morning. This would not however be significant enough to cause this kind of conduction abnormalities. She was given 40 mg of subcu Lovenox this morning. PAST MEDICAL HISTORY: She denies any chest pain, and has no shortness of breath at this time. PAST MEDICAL HISTORY: Significant for hypertension, hyperlipidemia, and osteoporosis. She has had leg fracture. She has had surgery on the leg for the fracture. She has had a broken wrist. She has had a colonoscopy and back surgery. ALLERGIES: SHE IS ALLERGIC TO SULFA, PENICILLIN, KEFLEX, AND CODEINE. FAMILY HISTORY: Noncontributory. SOCIAL HISTORY: She lives at home. She has no alcohol or tobacco abuse. She is a . MEDICATIONS: Prior to admission include: 1. Evista. 2. Losartan 100 mg daily. 3. Norvasc 5 mg a day. 4. Atenolol 50 mg, which is being held. She was taken twice a day. 5. Protonix 40 mg a day. 6. Pravastatin 20 mg a day. 7. Ferrous sulfate 325 mg two tablets a day. 8. Calcium. 9. Vitamin D3 and B12. 10. Cranberry. 11. Aspirin 81 mg a day. REVIEW OF SYSTEMS: A 12-point review of systems, she does complain of the some diarrhea and some shortness of breath and dizziness. Otherwise, 12-point review of systems is unremarkable. PHYSICAL EXAMINATION: GENERAL: Reveals an elderly female, who is in no acute distress. She is alert and oriented, very sharp for someone of her age. VITAL SIGNS: Her blood pressure is 131/45, heart rate is anywhere between 30 to 90, but often is in the 30s, respiratory rate 15, and O2 saturations are 97%. HEENT: Shows the head to be normocephalic and atraumatic. She does have bilateral carotid bruits noted. As noted from the recent vascular study, this is not critical. CHEST: Clear to auscultation. CARDIOVASCULAR: Reveals a bradycardia. She has a very soft systolic murmur at the apex. ABDOMEN: Soft and nontender. Positive bowel sounds are present. EXTREMITIES: Showed no clubbing, cyanosis, or edema. Pedal pulses are present. NEUROLOGIC: The patient appears to be fully intact. There are no gross focal motor deficits. DIAGNOSTIC DATA: EKG shows a junctional escape rhythm with a heart rate in the 40s. LABORATORY DATA: Hemoglobin is 9.1, WBC of 9.4, platelet count 142,000. Sodium was 129, potassium 4.1, BUN is 45, creatinine of 2.1. Troponin I is indeterminate at 0.042 and 0.038. This is likely due to demand ischemia. Also, her renal function is elevated most likely due to decreased perfusion. IMPRESSION: 1. 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 She will be advised to undergo pacemaker insertion on a rather urgent basis. She did have Lovenox this morning only 40 mg for DVT prophylaxis dose. I did explain to her the procedure, the risks of bleeding, infection, possible pneumothorax, hemothorax, or even possibly . She understands the plan for pacemaker insertion later today. 2. History of hypertension. This is under good control at this time. 3. History of hypercholesterolemia. We will resume her medications after the procedure. 4. History of arthritis and osteoporosis. She will continue on her present medications for this. 5. Carotid artery stenosis. This was performed and her last carotid study was performed in May 2018, which did not show any significant stenosis of the carotids less than 50% bilaterally internal carotid artery stenosis. Job ID: [id number]
[2018-09-09] MEDS ORDERED: Midazolam HCl 2 mg/2 ml Vial ONE (16:20)
--- NOTE | 2018-09-09 17:37 | PRG ---
DATE OF SERVICE: 09/09/2018 SUBJECTIVE: The patient states she feels okay at the moment. She is not having any specific concerns. Anxious to get a procedure done. OBJECTIVE: VITAL SIGNS: Temperature 98, pulse 84 down to 41, BP 165/59, and O2 saturation 94% on room air. GENERAL APPEARANCE: Age-appropriate female, in no distress. She is awake, alert, oriented, pleasant, and cooperative. HEART: Regular rate and rhythm without murmurs, gallops, or rubs. LUNGS: Clear to auscultation bilaterally with good chest wall expansion and air exchange. ABDOMEN: Soft, nontender, and nondistended. Positive bowel sounds. No masses. No organomegaly. EXTREMITIES: Warm and dry with no cyanosis, clubbing, or edema. NEUROLOGIC: The patient appears appropriate and intact. She has normal affect and normal behavior. LABORATORY DATA: White count 9.4, hemoglobin 9.1. Sodium 129, potassium 4.1, chloride 102, CO2 is 14, BUN 45, and creatinine is 2.1. IMPRESSION AND PLAN: 1. 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 She had had her beta blockers held. Plan is for pacemaker placement this afternoon with Cardiology. 2. Acute renal failure. The patient's creatinine has typically been normal and now it is significantly elevated with prerenal numbers. It is possibly some hypoperfusion because of her tachy-arlette syndrome. I would avoid giving her significant fluids in order to avoid any type of failure symptoms. However, she will need some fluids after the pacemaker was placed. If she does not improve with fluids, we will need to be mindful to monitor for any obstructive uropathy. The patient has recently been placed on some type of anticholinergic for bladder control issues. 3. Hyponatremia. The patient has chronic hyponatremia, appears to be stable at her baseline. 4. Metabolic acidosis, likely due to renal insufficiency. We will continue monitor with fluids. 5. Hypertension, well controlled. Beta-blockers held. 6. Hyperlipidemia. Continue home medications. Job ID: [id number]
--- NOTE | 2018-09-09 17:57 | RAD ---
FRONTAL VIEW CHEST: Date: 09/09/18 COMPARISON: 11/22/17. INDICATION: Status post cardiac pacing device placement. FINDINGS: There is a dual lead left subclavian approach cardiac pacing device. Leads overlie the expected regio n of the right atrium and right ventricle. No significant postprocedure pneumothorax is seen. There i s enlargement of the cardiac silhouette and pulmonary vasculature. Extrinsic artifacts limit detail. Vascular calcifications present. IMPRESSION: Left subclavian approach cardiac pacing device. No significant postprocedural pneumothorax visualized . POS: JORGE ALBERTO
[2018-09-09] MEDS: Atenolol 50 MG TAB PO SCH (18:06)
[2018-09-09] MEDS: Sodium Chloride 0.9% 1,000 ML IV SCH (18:06)
[2018-09-10 05:21] LABS: #Eosinphils 0.1 thou/uL (0.0-0.7); #Lymphocytes 2.3 thou/uL (1.20-3.40); #Monocytes 1.1 thou/uL (0.11-0.59); #Neutrophils 6.6 thou/uL (1.40-6.50); %Basophils 0.3 % (0.0-1.0); %Eosinophils 1.1 % (0.0-10.0); %Lymphocytes 23.1 % (21.0-51.0); %Monocytes 10.7 % (0.0-10.0); %Neutrophils 64.9 % (42.0-75.0); Hemoglobin 9.7 g/dL (12.0-16.0); Mean Corpuscular HGB CONC 33.9 g/dL (32.0-36.0); Mean Corpuscular Hemoglobin 29.6 pg (27.0-31.0); Mean Corpuscular Volume 87.1 fL (78.0-98.0); Mean Platelet Volume 8.3 fL (7.4-10.4); Platelet Count 151 thou/uL (130-400); RBC Distribution Width 13.6 % (11.5-14.5); Red Blood Cell (RBC) Count 3.27 mill/uL (4.20-5.40); White Blood Cell (WBC) Count 10.1 thou/uL (4.8-10.8)
[2018-09-10 05:28] LABS: Anion Gap 16 mmol/L (10-20); BUN (Urea Nitrogen) 29 mg/dL (9.8-20.1); Calc. Creatinine Clearance 33 mL/min (70-130); Calcium 8.7 mg/dL (7.8-10.44); Carbon Dioxide 14 mmol/L (23-31); Chloride 107 mmol/L (98-107); Estimated GFR-MDRD 39; Glucose 97 mg/dL (83-110); Potassium 4.2 mmol/L (3.5-5.1); Sodium 133 mmol/L (136-145)
--- NOTE | 2018-09-10 07:44 | EKG ---
Test Reason : Blood Pressure : / mmHG Vent. Rate : 040 BPM Atrial Rate : 300 BPM P-R Int : 000 ms QRS Dur : 094 ms QT Int : 474 ms P-R-T Axes : 000 050 070 degrees QTc Int : 386 ms Junctional bradycardia Nonspecific ST abnormality Abnormal ECG When compared with ECG of 08-SEP-2018 17:49, (Unconfirmed) No significant change was found Confirmed by SHIREEN HUYNH ([id number]) on 09/10/2018 7:44:12 AM Referred By: ESTUARDO Confirmed By:SHIREEN HUYNH
[2018-09-10] MEDS: Sodium Chloride 0.9% 1,000 ML IV SCH ×2 (07:59→15:27)
--- NOTE | 2018-09-10 08:05 | PDOC.PULPN ---
Progress Note: Subj/Obj - Subjective Date: 09/10/18 Time: 08:04 Narrative: Doing well. She is a little reluctant to go home - ROS All systems: reviewed and no additional remarkable complaints except as stated - Objective Allergies/Adverse Reactions: Allergies Allergy/AdvReac Type Severity Reaction Status Date / Time cephalexin [From Keflex] Allergy Verified 11/23/17 02:14 codeine Allergy Verified 11/23/17 02:14 Penicillins Allergy Verified 11/23/17 02:14 Sulfa (Sulfonamide Allergy Verified 11/23/17 02:14 Antibiotics) MAR Reviewed: Yes Vital Signs: Vital Signs Temp 98.6 F 09/10/18 03:40 Pulse Resp BP Pulse Ox 95 09/10/18 06:42 Progress Note: Exam - Physical Exam Constitutional: NAD HEENT: PERRLA Neck: no JVD Cardiovascular: RRR Deviation from normal: pacemaker present left upper chest Respiratory: clear to auscultation bilaterally Gastrointestinal: soft, non-tender Musculoskeletal: no edema Neurological: non-focal Lymphatic: no nodes Psychiatric: A&O x 3 Skin: no rash Progress Note: Data - Labs Result Diagrams: 09/10/18 05:09 09/10/18 05:09 - Radiology Interpretation Chest x-ray Additional comments: no pneumothorax Progress Note: A/P - Problems (1) Symptomatic bradycardia Current Visit: Yes Status: Acute Code(s): R00.1 - BRADYCARDIA, UNSPECIFIED (2) Junctional rhythm Current Visit: Yes Status: Acute Code(s): I49.8 - OTHER SPECIFIED CARDIAC ARRHYTHMIAS (3) HTN (hypertension) Current Visit: No Status: Chronic Code(s): I10 - ESSENTIAL (PRIMARY) HYPERTENSION Qualifiers: Hypertension type: essential hypertension Qualified Code(s): I10 - Essential (primary) hypertension - Plan Plan: Bradycardia has resolved with pacemaker placement. Pt can be transferred out of [facility] and perhaps even go home. No pulmonary issues, so I will sign off case.
--- NOTE | 2018-09-10 08:21 | PDOC.CTH ---
Cardiology Progress Note - Subjective The pt seen and examined. No overnight events. No cardiac complaints. - Objective Vital Signs Temp Pulse Ox 09/10/18 06:42 95 09/10/18 03:40 98.6 F 09/09/18 23:53 98.8 F Admit Weight 146 lb 9.6 oz Weight 146 lb 9.6 oz 09/09/18 09/10/18 09/11/18 06:59 06:59 06:59 Intake Total 1000 Output Total 1340 Balance -340 - Physical Examination General/Neuro: alert & oriented x3 Neck: no JVD present Lungs: CTA Heart: RRR Abdomen: soft Extremities: other: (No edema;) - Telemetry Telemetry Rhythm: SR - Labs Result Diagrams: 09/10/18 05:09 09/10/18 05:09 Troponin/CKMB CK-MB (CK-2) 3.7 ng/mL (0-6.6) 09/08/18 22:33 Troponin I 0.038 ng/mL (< 0.028) H 09/08/18 22:33 - Assessment/Plan 1. 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 UTI - managed by PCP 3. HTN - stable 4. SHAHEED - improving 5. Hyperlipidemia - MAR reviewed * From Cardiac standpoint, the pt is stable to d/c home. The pt will f/u within 10 days for the PM site check and within 3 months for initial PM interrogation at ' office. Pt. seen and eval. by me. She is feeling better after pacemaker implant. Chest clear. RRR. Probably home tomorrow. Review of Systems - Review of Systems Constitutional: reports: no symptoms reported EENTM: reports: no symptoms reported Respiratory: reports: no symptoms reported Cardiac (ROS): reports: no symptoms reported ABD/GI: reports: no symptoms reported : reports: no symptoms reported Musculoskeletal: reports: no symptoms reported Skin: reports: no symptoms reported
[2018-09-10] MEDS: Enoxaparin Sodium 40 MG/0.4 ML SYRINGE SC SCH (10:20)
[2018-09-10] MEDS: cefTRIAXone\\ROCEPHIN 1 GM in Sodium Chloride 0.9% 100 ML IVPB SCH (10:21)
[2018-09-10] MEDS: Atenolol 50 MG TAB PO SCH (18:47)
--- NOTE | 2018-09-10 19:39 | CCL ---
DATE OF PROCEDURE: 09/09/18 INDICATION FOR PROCEDURE: An 88-year-old female with a tachy/arlette syndrome with heart rates in the 30s at times with junctiona l rhythm and long pause of more than 5 seconds with presyncopal episodes. She was advised to undergo dual-chamber pacemaker insertion. She was taken to cardiac [facility] lab[facility] where she underwent the procedure today without difficulties or com plications. She was implanted with a dual chamber pacemaker from [employer], an Ang[employer] which is an MRI compatible device with two screw in leads, one in the atrium and the ventricle. The pacemaker was se t with the upper rate of 120 the lower rate was set at 60. There were no difficulties or complicatio ns encountered. She also was given 1 mg of IV versed for conscious sedation during the procedure. Sh e as monitored by an independent observer present for heart rate, blood pressure and O2 saturations. These were all found to be stable.
--- NOTE | 2018-09-10 22:06 | PDOC.PN ---
- Subjective Encounter Start Date: 09/10/18 Encounter Start Time: 13:00 Doing well post PPM placement. - Objective Resuscitation Status - Order Detail: 09/08/18 21:40 Resuscitation Status Routine Resuscitation Status: DNAR: NO Resuscitation Discussed with: discussed with family and patient Vital Signs & Weight: Vital Signs (12 hours) Temp 09/10/18 19:24 98.8 F 09/10/18 16:00 98.3 F 09/10/18 12:00 98.4 F Weight Admit Weight 146 lb 9.6 oz Weight 146 lb 9.6 oz Most Recent Monitor Data Heart Rate from ECG 64 NIBP 145/59 NIBP BP-Mean 87 Respiration from ECG 27 SpO2 100 I&O: 09/09/18 09/10/18 09/11/18 06:59 06:59 06:59 Intake Total 1000 1100 Output Total 1340 900 Balance -340 200 Result Diagrams: 09/10/18 05:09 09/10/18 05:09 Phys Exam - Physical Examination Constitutional: NAD Respiratory: no wheezing, no rales, no rhonchi Cardiovascular: RRR, no significant murmur, no rub Gastrointestinal: soft, non-tender, no distention Musculoskeletal: no edema Bruising at PPM site. No erythema. Dx/Plan (1) Prerenal azotemia Code(s): R79.89 - OTHER SPECIFIED ABNORMAL FINDINGS OF BLOOD CHEMISTRY Status : Acute (2) Symptomatic bradycardia Code(s): R00.1 - BRADYCARDIA, UNSPECIFIED Status: Acute (3) Hyponatremia Code(s): E87.1 - HYPO-OSMOLALITY AND HYPONATREMIA Status: Acute Comment: sodium improving, 130 today (4) HTN (hypertension) Code(s): I10 - ESSENTIAL (PRIMARY) HYPERTENSION Status: Chronic Qualifiers: Hypertension type: essential hypertension Qualified Code(s): I10 - Essential (primary) hypertension Comment: Monitor vital signs, titrate antihypertensives as needed - Plan * Doing well post PPM. ON BB. * Will continue to hydrate and recheck the renal function in am. Unclear if this is related to dehydration from GI sxs or if it was poor forward flow from the bradycardia. Improved today, but not normal.
[2018-09-11] MEDS: Acetaminophen 325 MG TAB PO PRN (01:22)
[2018-09-11 05:59] LABS: #Basophils 0.1 thou/uL (0.0-0.2); #Eosinphils 0.4 thou/uL (0.0-0.7); #Monocytes 0.9 thou/uL (0.11-0.59); #Neutrophils 5.1 thou/uL (1.40-6.50); %Basophils 0.8 % (0.0-1.0); %Eosinophils 4.9 % (0.0-10.0); %Lymphocytes 23.9 % (21.0-51.0); %Monocytes 10.6 % (0.0-10.0); %Neutrophils 59.9 % (42.0-75.0); Hemoglobin 8.9 g/dL (12.0-16.0); Mean Corpuscular HGB CONC 32.6 g/dL (32.0-36.0); Mean Corpuscular Hemoglobin 28.9 pg (27.0-31.0); Mean Corpuscular Volume 88.6 fL (78.0-98.0); Mean Platelet Volume 8.2 fL (7.4-10.4); Platelet Count 183 thou/uL (130-400); RBC Distribution Width 13.7 % (11.5-14.5); Red Blood Cell (RBC) Count 3.09 mill/uL (4.20-5.40); White Blood Cell (WBC) Count 8.5 thou/uL (4.8-10.8)
[2018-09-11] MEDS: Sodium Chloride 0.9% 1,000 ML IV SCH (06:18)
[2018-09-11 06:26] LABS: Anion Gap 11 mmol/L (10-20); BUN (Urea Nitrogen) 15 mg/dL (9.8-20.1); Calc. Creatinine Clearance 48 mL/min (70-130); Calcium 8.3 mg/dL (7.8-10.44); Carbon Dioxide 19 mmol/L (23-31); Chloride 110 mmol/L (98-107); Estimated GFR-MDRD 61; Glucose 96 mg/dL (83-110); Sodium 136 mmol/L (136-145)
--- NOTE | 2018-09-11 08:00 | EKG ---
Test Reason : Blood Pressure : / mmHG Vent. Rate : 069 BPM Atrial Rate : 069 BPM P-R Int : 216 ms QRS Dur : 102 ms QT Int : 440 ms P-R-T Axes : 079 059 073 degrees QTc Int : 471 ms Sinus rhythm with 1st degree A-V block Otherwise normal ECG When compared with ECG of 09-SEP-2018 10:28, Sinus rhythm has replaced Junctional rhythm Vent. rate has increased BY 29 BPM QT has lengthened Confirmed by SHIREEN HUYNH ([id number]) on 09/11/2018 8:00:18 AM Referred By: SOLANGE Confirmed By:SHIREEN HUYNH
[2018-09-11] MEDS: Enoxaparin Sodium 40 MG/0.4 ML SYRINGE SC SCH (09:12)
[2018-09-11 09:30] VITALS: TEMP 97.8
--- NOTE | 2018-09-11 10:02 | PDOC.CTH ---
Cardiology Progress Note - Subjective The pt seen and examined. No overnight events. No cardiac complaints. - Objective Vital Signs Temp BP 09/11/18 08:00 97.8 F 149/70 H 09/11/18 04:00 99.0 F 09/11/18 00:00 97.9 F Admit Weight 146 lb 9.6 oz Weight 146 lb 9.6 oz 09/10/18 09/11/18 09/12/18 06:59 06:59 06:59 Intake Total 1000 1910 Output Total 1340 1880 Balance -340 30 - Physical Examination General/Neuro: alert & oriented x3 Neck: no JVD present Lungs: CTA Heart: RRR Abdomen: soft Extremities: other: (No edema) - Telemetry Telemetry Rhythm: SR - Labs Result Diagrams: 09/11/18 05:34 09/11/18 05:34 Troponin/CKMB CK-MB (CK-2) 3.7 ng/mL (0-6.6) 09/08/18 22:33 Troponin I 0.038 ng/mL (< 0.028) H 09/08/18 22:33 - Assessment/Plan 1. S/p PM placement 08/24 SSS - stable; the site is FLAKITO, no hematoma, but no s/s of infection or drainage; 2. UTI - managed by PCP 3. HTN - stable 4. SHAHEED - improved with IV NS 5. Hyperlipidemia - MAR reviewed * From Cardiac standpoint, the pt is stable to d/c home. The pt will f/u within 10 days for the PM site check and within 3 months for initial PM interrogation at ' office. Pt. seen and eval. by me. I agree with the A/P by the STRING WINDING MACHINE OPERATOR. Chest clear. RRR. Pacemaker site looks good. Review of Systems - Review of Systems Constitutional: reports: no symptoms reported EENTM: reports: no symptoms reported Respiratory: reports: no symptoms reported Cardiac (ROS): reports: no symptoms reported ABD/GI: reports: no symptoms reported : reports: no symptoms reported Musculoskeletal: reports: no symptoms reported
[2018-09-11] MEDS: cefTRIAXone\\ROCEPHIN 1 GM in Sodium Chloride 0.9% 100 ML IVPB SCH (11:33)
[2018-09-11 12:14] VITALS: BP 162/59
[2018-09-11] MEDS ORDERED: Nitrofurantoin Monohyd/M-Cryst 100 MG CAP PO SCH (21:00)
--- NOTE | 2018-09-12 11:12 | DIS ---
DATE OF ADMISSION: 09/08/2018 DATE OF DISCHARGE: 09/11/2018 DISCHARGE DIAGNOSES: 1. Symptomatic bradycardia with syncope/near syncope. 2. Prerenal azotemia. 3. Hyponatremia. 4. Hypertension. 5. Urinary tract infection with Escherichia coli. HISTORY: The patient is an 88-year-old female who presented via the emergency department with an episode of syncope. The patient was noted to be bradycardic in the emergency department with a heart rate around 40. She had junctional bradycardia on the EKG. Her BUN was elevated at 42, creatinine was 2.7. Chest x-ray showed some cardiomegaly. HOSPITAL COURSE: The patient was subsequently admitted with syncope secondary to symptomatic bradycardia. She was placed in the emergency department and seen in consultation by who is her internet specialist. The patient had beta blockers withheld and was able to maintain adequate blood pressure, but subsequently underwent pacemaker placement which she tolerated well. She also received some IV fluids and with the fluids and the pacemaker placement, the patient's BUN and creatinine did ultimately normalized back to her baseline renal function. She was able to function adequately and is felt to be stable for discharge to home at that time. PHYSICAL EXAMINATION: VITAL SIGNS: On the day of discharge, temperature is 97.8, pulse 60, respirations 17, O2 saturation is 98% on room air. GENERAL APPEARANCE: Age-appropriate female, in no distress. She was awake, alert, oriented, pleasant, and cooperative. HEART: Regular rate and rhythm without murmurs, gallops, or rubs. LUNGS: Clear to auscultation bilaterally. ABDOMEN: Soft, nontender, and nondistended with positive bowel sounds. No masses. No organomegaly. EXTREMITIES: Warm and dry. SKIN: The pacemaker site appeared healthy. DISPOSITION: The patient is discharged to home. ACTIVITY: As tolerated. DIET: She will remain on a heart healthy diet. DISCHARGE MEDICATIONS: She will be on: 1. Macrobid 100 mg p.o. b.i.d. 2. Pravastatin 40 mg at bedtime. 3. Protonix 40 mg daily. 4. Atenolol 50 mg b.i.d. 5. Tylenol 650 mg q.4 hours p.r.n. 6. VESIcare 5 mg daily. 7. Raloxifene 60 mg daily. 8. Tramadol 50 mg q.4 hours. 9. Losartan 100 mg daily. 10. Gabapentin p.o. at bedtime p.r.n. 11. Amlodipine 10 mg daily. 12. Calcium 600 mg daily. FOLLOWUP: She is to follow up with in 10 days and then [facility]. The patient can return to the emergency department should she have problems prior to the time of discharge. Job ID: [id number]
== END 2018-09-11 16:42 | disposition home or self-care (01) | DRG 243 ==
LOC: ERS 17:42 → ERHOLD 19:01 → IMCU/EMU 09-09 00:01
PROVIDERS: ADMIT Internal Medicine; ATTEND Internal Medicine
PROC: 0JH606Z Insertion of Pacemaker, Dual Chamber into Chest Subcutaneous Tissue and Fascia, Open Approach (ICD-10-PCS; principal; 2018-09-08)
PROC: 02H63JZ Insertion of Pacemaker Lead into Right Atrium, Percutaneous Approach (ICD-10-PCS; 2018-09-08)
PROC: 02HK3JZ Insertion of Pacemaker Lead into Right Ventricle, Percutaneous Approach (ICD-10-PCS; 2018-09-08)
DX: R00.1 Bradycardia, unspecified (principal); E87.1 Hypo-osmolality and hyponatremia; E87.2 Acidosis; N17.9 Acute kidney failure, unspecified; N39.0 Urinary tract infection, site not specified; I10 Essential (primary) hypertension; E78.5 Hyperlipidemia, unspecified; D64.9 Anemia, unspecified; M81.0 Age-related osteoporosis without current pathological fracture; I65.29 Occlusion and stenosis of unspecified carotid artery
CPT/HCPCS: 33208; 36415; 71045; 80048; 81003; 81015; 82553; 84484; 85025; 87077; 87086; 87186; 93005; 93010; 93798; 99152; 99153; C1785; C1898; J0461; J0696; J1650; J1956; J2250; J3370; J3490; J7050

== ENCOUNTER 2018-10-06 20:02 | Inpatient (IN) | payer MEDICARE, OTHER ==
[2018-10-06 23:25] LABS: Anion Gap 16 mmol/L (10-20); BUN (Urea Nitrogen) 17 mg/dL (9.8-20.1); Calc. Creatinine Clearance 0 mL/min (70-130); Calcium 9.1 mg/dL (7.8-10.44); Carbon Dioxide 22 mmol/L (23-31); Chloride 96 mmol/L (98-107); Estimated GFR-MDRD 58; Glucose 118 mg/dL (83-110); Magnesium 1.7 mg/dL (1.6-2.6); Potassium 5.1 mmol/L (3.5-5.1); Sodium 129 mmol/L (136-145)
[2018-10-07] MEDS ORDERED: Ondansetron PF 4 MG/2 ML Vial IVP PRN (00:51)
[2018-10-07] MEDS ORDERED: Ondansetron ODT 4 MG TAB PO PRN (00:51)
[2018-10-07] MEDS ORDERED: Calcium Carbonate 500 MG ChewTAB PO PRN (00:51)
--- NOTE | 2018-10-07 01:11 | HP ---
CHIEF COMPLAINT: Shortness of breath. HISTORY OF PRESENT ILLNESS: The patient is an 88-year-old female with sick sinus syndrome with recent pacemaker placement, presented to the emergency room with shortness of breath. She initially presented to [facility] and was transferred to this facility. Over the last one month, the patient has progressive worsening shortness of breath that got worse over the last 48 hours. She is unable to lie down flat over the last 1 week. This afternoon, she was unable to walk to bathroom. She also noticed bilateral lower extremity swelling. She denies any chest pain, palpitations, lightheadedness, dizziness, or syncope. No diaphoresis, recent immobilization, or travel reported. PAST MEDICAL HISTORY: 1. Sick sinus syndrome, status post recent pacemaker placement. 2. Hypertension. 3. Recent E. coli UTI on Macrobid. 4. GERD. 5. Dyslipidemia. 6. Squamous cell cancer of the skin. 7. Osteoporosis. PAST SURGICAL HISTORY: 1. Recent pacemaker placement. 2. Appendectomy. 3. Colonoscopy. 4. Skin biopsy. 5. Left total hip arthroplasty. 6. Multiple other orthopedic procedures. ALLERGIES: THE PATIENT IS ALLERGIC TO KEFLEX, CODEINE, PENICILLIN, AND SULFA. CURRENT HOME MEDICATIONS: The patient is unable to remember all of her medications. Family to get accurate list of medications in the morning. SOCIAL HISTORY: The patient currently lives at home with her family. She makes her own decision with the help of her daughter. No smoking, alcohol, or drug use reported. 8 years ago. FAMILY HISTORY: Mother of colon cancer in her 50s. REVIEW OF SYSTEMS: All other review of systems were reviewed and were found negative. PHYSICAL EXAMINATION: VITAL SIGNS: Temperature 98.7 with respirations of 22 on ER arrival, pulse rate of 74, blood pressure 158/67, and O2 saturation 92% on room air. The patient was in mild respiratory distress on ER arrival. HEENT: Head, atraumatic and normocephalic. Sclerae anicteric. Moist mucous membrane. No oral lesion. NECK: Supple. No JVD appreciated. No carotid bruit. LUNGS: Showed diminished air entry at bilateral bases. No significant accessory muscle use. There were few bibasilar rales. No rhonchi or wheezing. She was able to speak 6 to word sentences with mild accessory muscle use at [facility]. HEART: S1 and S2 present. Regular rate and rhythm. No significant heaves or pulsation. There is a 2/6 systolic murmur over the mitral area. ABDOMEN: Soft and nontender. Bowel sounds present. EXTREMITIES: 2+ edema in bilateral lower extremity. SKIN: Warm and dry. LYMPH NODES: No palpable lymph nodes in the neck. PERIPHERAL VASCULAR: Radial pulses palpable bilaterally. MUSCULOSKELETAL: No joint swelling or tenderness. LABORATORY FINDINGS: WBC of 14.3 with hemoglobin 9.9, hematocrit 31.9, and platelet 391. Chemistry showed sodium 128, potassium 5.1, chloride 97, bicarb 19, BUN 16 , creatinine 1.0, and glucose of 133. Sodium last admission was between 129 and 136. BNP was 1160. Troponin negative. Lactic acid 1.6. Magnesium 1.7. Urinalysis was negative for WBC bacteria. IMAGING DATA: Chest x-ray by my review showed cardiomegaly with pulmonary vascular congestion and bilateral pleural effusion. EKG by my review showed paced rhythm. IMPRESSION: 1. New onset acute congestive heart failure exacerbation. 2. Sick sinus syndrome, status post recent pacemaker placement. 3. Hypertension. 4. Gastroesophageal reflux disease. 5. Chronic kidney disease, stage 3. 6. Hyponatremia. 7. Metabolic acidosis. 8. Chronic anemia. 9. Hyperlipidemia. PLAN: The patient will be monitored in the telemetry unit with a diagnosis of new onset congestive heart failure exacerbation. Echocardiogram will be obtained. We will consult Cardiology, . We will add fluid restriction. We will confirm home medications and start accordingly. Recheck labs on a daily basis. Heart failure education. Serial troponins. Plan of care was discussed with the patient in detail. She stated understanding. Job ID: [id number] [facility]
[2018-10-07 01:15] LABS: Troponin I Less than 0.010 ng/mL (< 0.028)
[2018-10-07] MEDS ORDERED: Acetaminophen 325 MG TAB ONE (02:56)
[2018-10-07 03:58] LABS: ALT (SGPT) 11 U/L (8-55); AST (SGOT) 16 U/L (5-34); Albumin 3.6 g/dL (3.4-4.8); Alkaline Phosphatase 85 U/L (40-150); Anion Gap 17 mmol/L (10-20); BUN (Urea Nitrogen) 15 mg/dL (9.8-20.1); Bilirubin, Total 0.4 mg/dL (0.2-1.2); Calc. Creatinine Clearance 0 mL/min (70-130); Calcium 9.1 mg/dL (7.8-10.44); Carbon Dioxide 21 mmol/L (23-31); Chloride 96 mmol/L (98-107); Estimated GFR-MDRD 56; Glucose 109 mg/dL (83-110); Magnesium 1.7 mg/dL (1.6-2.6); Potassium 4.6 mmol/L (3.5-5.1); Protein, Total 6.6 g/dL (6.0-8.3); Sodium 129 mmol/L (136-145)
[2018-10-07] MEDS ORDERED: Nitroglycerin 2% Ointment 1 INCH/1 GM Packet ONE ×2 (05:22→08:02)
[2018-10-07] MEDS ORDERED: Furosemide 40 MG/4 ML VIAL ONE (06:30)
[2018-10-07] MEDS ORDERED: Enoxaparin Sodium 40 MG/0.4 ML SYRINGE ONE (08:02)
[2018-10-07] MEDS ORDERED: Aspirin 325 MG TAB ONE (08:02)
[2018-10-07] MEDS ORDERED: Losartan 25 MG TAB PO SCH (09:00)
[2018-10-07] MEDS: Nitroglycerin 2% Ointment 1 INCH/1 GM Packet TOP SCH ×3 (09:01→15:36)
[2018-10-07] MEDS: Aspirin 325 MG TAB PO SCH (09:05)
[2018-10-07] MEDS: Carvedilol 3.125 MG TAB PO SCH ×2 (09:05→16:21)
[2018-10-07] MEDS: Enoxaparin Sodium 40 MG/0.4 ML SYRINGE SC SCH (09:05)
[2018-10-07] MEDS: Senokot S 8.6-50 MG TAB PO SCH ×2 (09:05→20:56)
[2018-10-07] MEDS: Furosemide 40 MG/4 ML VIAL SLOW IVP SCH ×2 (09:36→13:15)
[2018-10-07 09:48] VITALS: BMI 28.9
[2018-10-07] MEDS: Acetaminophen 325 MG TAB PO PRN ×3 (10:34→20:56)
--- NOTE | 2018-10-07 15:36 | PDOC.PN ---
- Subjective Encounter Start Date: 10/07/18 Encounter Start Time: 14:35 Subjective: Patient without any complaints at present. Concerned about her pacemaker -: and an appointment for home visit to have it interrogated for today. -: She denies any complaints at present. States she came in due to fatigue. She tends to feel very worn out every so often and states this seems to be attributed to UTIs. Reports having a pacemaker placed due to bradycardia and has not fully recovered since then in terms of her general strength. She has also been told recently to increase her fluid intake and then told she was drinking too much causing a low sodium. She suffers from chronic anemia and was recently placed on Iron supplements. - Objective Resuscitation Status - Order Detail: 10/07/18 00:51 Resuscitation Status Routine Resuscitation Status: FULL: Full Resuscitation Vital Signs & Weight: Vital Signs (12 hours) Temp Pulse Resp BP Pulse Ox 10/07/18 11:19 93 L 10/07/18 09:53 97.7 F 64 20 150/66 H 95 Weight Weight 158 lb 3 oz Result Diagrams: 10/07/18 03:30 Phys Exam - Physical Examination Constitutional: NAD HEENT: PERRLA, moist MMs, sclera anicteric, oral pharynx no lesions Neck: supple, full ROM Respiratory: no wheezing, no rhonchi decreased breath sounds at bilateral bases Cardiovascular: RRR Gastrointestinal: soft, non-tender, no distention, positive bowel sounds Musculoskeletal: edema present +1 pitting edema in bilateral lower extremities Neurological: normal sensation, moves all 4 limbs Psychiatric: normal affect, A&O x 3 Skin: no rash Dx/Plan (1) Acute on chronic diastolic CHF (congestive heart failure) Code(s): I50.33 - ACUTE ON CHRONIC DIASTOLIC (CONGESTIVE) HEART FAILURE Status : Acute (2) Hyponatremia Code(s): E87.1 - HYPO-OSMOLALITY AND HYPONATREMIA Status: Acute Plan: Stable, continue to monitor Na+. (3) HTN (hypertension) Code(s): I10 - ESSENTIAL (PRIMARY) HYPERTENSION Status: Chronic Qualifiers: Hypertension type: essential hypertension Qualified Code(s): I10 - Essential (primary) hypertension - Plan cont current plan of care, DVT proph w/lovenox CXR with changes consistent with acute exacerbation of CHF and BNP 1,160.5 -: S/p Echo and awaiting cardio review. Interrogate PM. Continue Lasix. -: Resume home meds, monitor BP. -: No urinary symptoms. UA: Nit+, Bacteria 4+. UCx pending. * .
--- NOTE | 2018-10-07 23:51 | CON ---
DATE OF CONSULTATION: PRIMARY CARE PHYSICIAN: Dr. Silverman. PRIMARY REGIONAL ENGAGEMENT CONSULTANT: Janett Mays MD REASON FOR CARDIOLOGY CONSULTATION: New onset of congestive heart failure. HISTORY OF PRESENT ILLNESS: Ms. Aburto is a very present 88-year-old female with significant history of hypertension, hyperlipidemia, pacemaker placement in August 2018 secondary to sick sinus syndrome. She started having breathing problems. She has to catch a breath after mild exertion for at least 1 week. Her breathing started to improve after resting for a little while. However, yesterday, she could not catch a breath well and she also is having worsening of shortness of breath all day yesterday. She decided to present to the emergency department for further evaluation and treatment. She also mentions that she had to sleep on a recliner for few weeks due to worsening of shortness of breath when she is on the supine position. She has not had a good appetite and no energy. She had UTI one month ago. She is on Macrobid, which she is supposed to start taking the medicine from today. She has not seen urologist in [place], his name is Dr. Dillard. She also complained of bilateral lower extremity edema for 1 week, the same time she started having shortness of breath. She denies any chest pain, tightness, discomfort in her chest, palpitation, fluttering in her chest, dizziness, lightheadedness, pressure to the bilateral neck, or any other cardiac complaints. She had echocardiogram done in April 2017 with 60% moderate tricuspid regurgitation, moderate mitral valve regurgitation, mild AV sclerosis, mild pulmonary insufficiency, thickened anterior mitral valve leaflet. She had a stress test done in September 2011, which showed normal. She had carotid Dopplers done in April 2017, shows some mild stenosis in bilateral ICA and anterograde flow. PAST MEDICAL HISTORY: 1. Sick sinus syndrome, status post pacemaker placement. 2. Hypertension. 3. Hyperlipidemia. 4. Urinary tract infection. 5. Squamous cell cancer of the skin. 6. Osteoporosis. 7. GERD. PAST SURGICAL HISTORY: 1. Pacemaker placement. 2. Appendectomy. 3. Leg fracture. 4. Left total hip replacement. 5. L3 compression fracture, 08/29/2017. 6. Colonoscopy. 7. Bilateral broken wrist. FAMILY HISTORY: There are no significant cardiovascular history in her family. SOCIAL HISTORY: She is and retired. She has one daughter who is living well. She denies tobacco, EtOH, or illicit drug abuse. She drinks decaf coffee one cup a day. She does not do exercise regularly since one year ago when she had a back fracture. ALLERGIES: SHE IS ALLERGIC TO KEFLEX, CODEINE, PENICILLIN, AND SULFA. MEDICATION: 1. Pravastatin 40 mg once a day. 2. Protonix 40 mg once a day. 3. Atenolol 50 mg twice a day. 4. Tylenol 650 mg every 4 hours as needed. 5. Evista 60 mg once a day. 6. Tramadol 50 mg every 4 hours as needed. 7. Losartan 100 mg once a day. 8. Gabapentin 300 mg at bedtime. 9. Norvasc 10 mg once a day. 10. Calcium carbonate 600 mg once a day. 11. Macrobid 100 mg twice a day. 12. Aspirin 81 mg once a day. REVIEW OF SYSTEMS: Twelve-point review of systems is negative unless otherwise mentioned in the HPI. She has had several diarrhea few weeks ago. Other than that, she denies constipation, blood in the stool or urine at this moment. PHYSICAL EXAMINATION: VITAL SIGNS: Blood pressure 147/65, heart rate 65, A pacing and V sensing, O2 saturation 93% on 3 L nasal cannula, temperature 97.7, and respiratory rate 20. GENERAL: The patient is alert and oriented x4, nonfocal, in no acute distress. HEENT: Head; normocephalic, atraumatic. Eyes; extraocular muscle movement intact. She wears glasses. ENT; mouth and oral nasal mucosa moist without lesions. NECK: Supple. Normal range of motion. No JVD. RESPIRATORY: Clear to auscultation bilaterally, but diminished at the bases. CARDIOVASCULAR: Regular rate and rhythm. Normal S1 and S2. There are no S3 or S4. No significant. There are significant murmur to the right mid medial sternal borders and appendix area. No thrill or bruit noted. 2+ pulses in bilateral upper and lower extremities. They have 3 pitting edema in the bilateral lower extremities. Carotid pulses are present without bruit or thrill noted. ABDOMEN: Soft, nontender. No mass to palpitate. Bowel sounds are present. SKIN: Warm and dry. No lesion, rash, or hematoma noticed. MUSCULOSKELETAL: The patient is able to move all extremities without difficulty. The patient denied claudication. PSYCHIATRIC: The patient's mood is appropriate. NEUROLOGIC: The patient is alert and oriented x4. Nonfocal. A telemetry record showing the patient with sinus rhythm and occasional A paced and V sensed. Heart rate in the 60s. The patient's chest x-ray shows cardiomegaly, pulmonary vascular congestion, inhaler airspace opacity and bilateral pleural effusion. Findings concern for congestive heart failure. The patient's echocardiogram was done today which shows EF of 50% to 55% and diastolic dysfunction. Moderate dilated left atrium. Mildly enlarged right atrium. Severe mitral valve regurgitation. Severe aortic valve stenosis. Valve area is less than 1 square cm. Mild tricuspid regurgitation, mild pulmonary regurgitation, and left pleural effusion. ASSESSMENT AND PLAN: 1. Acute on chronic diastolic dysfunction. The patient's respiratory condition is improved with Lasix 40 mg IV push twice a day. She is on carvedilol 3.125 mg twice a day and losartan 12.5 mg once a day. We would like to continue current medication. 2. Severe aortic valve stenosis/severe mitral valve regurgitation. We would like to continue to monitor the patient's condition at this moment and possibly the patient need to undergo left and right cardiac catheterization for more evaluation for possible valve replacement. 3. Hypertension. The patient's blood pressure is slightly elevated at this moment. However, she is on Lasix 40 mg IV push twice a day. At this moment, she is on low-dose beta zana and ARB at this moment. We would like to adjust the medicine as appropriate. 4. Status post pacemaker placement. The patient's pacemaker site is clear. No discharge. At this moment, the patient does not have any sick sinus syndrome like symptom at this moment. We would continue to monitor. 5. Urinary tract infection. Urine culture was received and result is pending at this moment. She was prescribed Macrobid by the patient's urologist. She is on this medicine at this time, which is managed by patient's primary care doctor. We would like to continue to monitor. 6. Hyponatremia. If patient's sodium level is still low, we would like to start Samsca, I believe, the medication to make sodium level better. At this moment, we would like to continue to monitor. Thank you very much for allowing the Cardiology Service to participate in the care of this patient. We will follow along with the patient's care team and make further recommendations as appropriate. Job ID: [id number]
[2018-10-08] MEDS: Nitroglycerin 2% Ointment 1 INCH/1 GM Packet TOP SCH (03:26)
[2018-10-08 05:00] LABS: #Basophils 0.1 thou/uL (0.0-0.2); #Eosinphils 0.1 thou/uL (0.0-0.7); #Lymphocytes 2.8 thou/uL (1.20-3.40); #Monocytes 0.8 thou/uL (0.11-0.59); %Basophils 0.8 % (0.0-1.0); %Eosinophils 0.7 % (0.0-10.0); %Lymphocytes 31.7 % (21.0-51.0); %Monocytes 8.9 % (0.0-10.0); %Neutrophils 57.8 % (42.0-75.0); Mean Corpuscular HGB CONC 32.1 g/dL (32.0-36.0); Mean Corpuscular Hemoglobin 27.7 pg (27.0-31.0); Mean Corpuscular Volume 86.5 fL (78.0-98.0); Mean Platelet Volume 7.5 fL (7.4-10.4); Platelet Count 316 thou/uL (130-400); RBC Distribution Width 14.5 % (11.5-14.5); Red Blood Cell (RBC) Count 3.24 mill/uL (4.20-5.40); White Blood Cell (WBC) Count 8.7 thou/uL (4.8-10.8)
[2018-10-08 05:22] LABS: ALT (SGPT) 9 U/L (8-55); AST (SGOT) 12 U/L (5-34); Albumin 3.2 g/dL (3.4-4.8); Alkaline Phosphatase 72 U/L (40-150); Anion Gap 14 mmol/L (10-20); BUN (Urea Nitrogen) 15 mg/dL (9.8-20.1); Bilirubin, Total 0.3 mg/dL (0.2-1.2); Calc. Creatinine Clearance 44 mL/min (70-130); Calcium 8.6 mg/dL (7.8-10.44); Carbon Dioxide 24 mmol/L (23-31); Chloride 96 mmol/L (98-107); Estimated GFR-MDRD 50; Globulin 2.6 g/dL (2.4-3.5); Glucose 89 mg/dL (83-110); Magnesium 1.6 mg/dL (1.6-2.6); Potassium 4.8 mmol/L (3.5-5.1); Protein, Total 5.8 g/dL (6.0-8.3); Sodium 129 mmol/L (136-145)
[2018-10-08] MEDS: Furosemide 40 MG/4 ML VIAL SLOW IVP SCH ×2 (06:28→15:55)
--- NOTE | 2018-10-08 08:35 | RAD ---
FRONTAL VIEW CHEST: COMPARISON: 10/06/2018. INDICATION: Dyspnea. Heart failure. FINDINGS: There are moderate to large bilateral pleural effusions slightly progressed with adjacent parenchymal density. There is enlargement of the cardiac silhouette and engorgement of the pulmonary vasculatur e. Chest is otherwise similar. IMPRESSION: Findings which favor decompensated congestive heart failure with moderate to large bilateral pleural effusions and associated edema. Recommend continued followup. POS: RICH
[2018-10-08] MEDS: Enoxaparin Sodium 40 MG/0.4 ML SYRINGE SC SCH (09:01)
[2018-10-08] MEDS: Aspirin 325 MG TAB PO SCH (09:01)
[2018-10-08] MEDS: Senokot S 8.6-50 MG TAB PO SCH ×2 (09:02→20:18)
[2018-10-08] MEDS ORDERED: Carvedilol 6.25 MG TAB PO SCH (09:45)
[2018-10-08] MEDS: Carvedilol 3.125 MG TAB PO SCH (09:55)
--- NOTE | 2018-10-08 10:07 | PDOC.CTH ---
Cardiology Progress Note - Subjective The pt seen and examined. No overnight events. No cardiac complaints. She still cannot be on supine position 2/ SOB. - Objective Vital Signs Temp Pulse Resp BP Pulse Ox 10/08/18 08:20 98.3 F 69 149/70 H 87 L 10/08/18 04:40 98.5 F 62 18 147/66 H 90 L 10/08/18 03:28 91 L 10/08/18 00:55 63 16 156/70 H 91 L Weight 153 lb 4.8 oz 10/07/18 10/08/18 10/09/18 06:59 06:59 06:59 Intake Total 800 Output Total 1400 Balance -600 - Physical Examination General/Neuro: alert & oriented x3 Neck: no JVD present Lungs: CTA (diminished at bases) Heart: RRR Abdomen: soft Extremities: other: (2-3+ pitting BLE thiago) - Telemetry Telemetry Rhythm: SR A paced - Labs Result Diagrams: 10/08/18 04:19 10/08/18 04:19 Troponin/CKMB Troponin I Less than 0.010 ng/mL (< 0.028) 10/07/18 00:44 - Assessment/Plan 1. Acute on chronic diastolic HF - improving with Lasix 40mg IV BID, coreg, and Losartan 2. HTN - Increase Losartan to 25mg qd and coreg 6.25mg BID 3. Hx of PM placement - 4. Severe /MR - cont. monitor 5. Hyponatremia - unchanged MAR reviewed * Echo showed EF 50-55%, diastolic dysfunction, mildly dilated LA, mild ERA, severe MR, severe with valve area 0.75mmHg, mild TR, mild NY, and Lt plural effusion. Pt. seen and eval. y me. I agree with the A/P by the YARDER PUNCHER. The AV may not be as stenotic as indicated by the echo. On physical exam the murmur is not severe. Once the pt is stable and diuresed then consider LEE ANN or cardiac cath to determine the gradient and degree of stenosis. Review of Systems - Review of Systems Constitutional: reports: no symptoms reported EENTM: reports: no symptoms reported Respiratory: reports: see HPI Cardiac (ROS): reports: no symptoms reported ABD/GI: reports: no symptoms reported : reports: no symptoms reported Musculoskeletal: reports: no symptoms reported
--- NOTE | 2018-10-08 10:26 | PDOC.PN ---
- Subjective Encounter Start Date: 10/08/18 Encounter Start Time: 10:24 Subjective: Patient feeling well denies any complaints. Tolerated breakfast well. -: Moved her bowels 2 days ago. Denies any abdo pain. No n/v. Reports flatus. -: Rested comfortably overnight. Afebrile. Remains on O2 but denies SOB. - Objective Resuscitation Status - Order Detail: 10/07/18 00:51 Resuscitation Status Routine Resuscitation Status: FULL: Full Resuscitation Vital Signs & Weight: Vital Signs (12 hours) Temp Pulse Resp BP Pulse Ox 10/08/18 08:20 98.3 F 69 149/70 H 87 L 10/08/18 04:40 98.5 F 62 18 147/66 H 90 L 10/08/18 03:28 91 L 10/08/18 00:55 63 16 156/70 H 91 L Weight Weight 153 lb 4.8 oz I&O: 10/07/18 10/08/18 10/09/18 06:59 06:59 06:59 Intake Total 800 Output Total 1400 Balance -600 Result Diagrams: 10/08/18 04:19 10/08/18 04:19 Phys Exam - Physical Examination Constitutional: NAD HEENT: PERRLA, moist MMs Neck: supple, full ROM Respiratory: clear to auscultation bilateral Decreased at the bases bilaterally Cardiovascular: RRR Gastrointestinal: soft, non-tender, no distention, positive bowel sounds Musculoskeletal: edema present +1 lower leg edema bilaterally Neurological: normal sensation, moves all 4 limbs Psychiatric: normal affect, A&O x 3 Skin: no rash Dx/Plan (1) Acute on chronic diastolic CHF (congestive heart failure) Code(s): I50.33 - ACUTE ON CHRONIC DIASTOLIC (CONGESTIVE) HEART FAILURE Status : Acute (2) Hyponatremia Code(s): E87.1 - HYPO-OSMOLALITY AND HYPONATREMIA Status: Acute (3) HTN (hypertension) Code(s): I10 - ESSENTIAL (PRIMARY) HYPERTENSION Status: Chronic Qualifiers: Hypertension type: essential hypertension Qualified Code(s): I10 - Essential (primary) hypertension - Plan cont current plan of care Na+ stable. ECHO: EF 50-55%, severe /MR, Cardiology monitoring. -: CXR:Finding of decompensated CHF w/mod to large bilateral pleural effusions -: slightly progressed from CXR on 10/06/18. Currently on Lasix IV 40 mg BID. -: Additional dose of Lasix 40 mg IV x 1 now. Fluid restrictions. -: Further recommendations as per Cardiology team. Discussed with Dr. Woodson who agrees with plan as above.
[2018-10-08] MEDS: Losartan 25 MG TAB PO SCH (10:37)
[2018-10-08] MEDS ORDERED: Furosemide 40 MG/4 ML VIAL SLOW IVP SCH (12:00)
--- NOTE | 2018-10-08 12:19 | PDOC.CTH ---
Cardiology Progress Note - Subjective The pt seen and examined. No overnight vents. No cardiac complaints. - Objective Vital Signs Temp Pulse Resp BP Pulse Ox 10/08/18 11:10 98.4 F 64 16 146/65 H 94 L 10/08/18 08:20 98.3 F 69 149/70 H 87 L 10/08/18 04:40 98.5 F 62 18 147/66 H 90 L 10/08/18 03:28 91 L 10/08/18 00:55 63 16 156/70 H 91 L Weight 153 lb 4.8 oz 10/07/18 10/08/18 10/09/18 06:59 06:59 06:59 Intake Total 800 Output Total 1400 Balance -600 - Labs Result Diagrams: 10/08/18 04:19 10/08/18 04:19 Troponin/CKMB Troponin I Less than 0.010 ng/mL (< 0.028) 10/07/18 00:44
[2018-10-08] MEDS: Carvedilol 6.25 MG TAB PO SCH (18:08)
[2018-10-08] MEDS: Acetaminophen 325 MG TAB PO PRN (20:18)
[2018-10-09] MEDS: Furosemide 40 MG/4 ML VIAL SLOW IVP SCH (06:50)
[2018-10-09] MEDS ORDERED: Metolazone 5 MG TAB PO SCH (07:00)
[2018-10-09] MEDS: Carvedilol 6.25 MG TAB PO SCH ×2 (10:10→17:45)
[2018-10-09] MEDS: Enoxaparin Sodium 40 MG/0.4 ML SYRINGE SC SCH (10:10)
[2018-10-09] MEDS: Aspirin 325 MG TAB PO SCH (10:10)
[2018-10-09] MEDS: Losartan 25 MG TAB PO SCH (10:10)
[2018-10-09] MEDS: Senokot S 8.6-50 MG TAB PO SCH ×2 (10:13→20:46)
[2018-10-09] MEDS ORDERED: Nitrofurantoin Monohyd/M-Cryst 100 MG CAP PO SCH (10:30)
[2018-10-09] MEDS ORDERED: Communication Order-Pharmacy FS SCH (10:30)
--- NOTE | 2018-10-09 13:31 | PDOC.CTH ---
Cardiology Progress Note - Subjective The pt seen and examined. No overnight events. No cardiac complaints. - Objective Vital Signs Temp Pulse Pulse Pulse Resp BP BP 10/09/18 11:36 99.3 F 61 16 10/09/18 08:45 63 64 158/70 H 158/71 H 10/09/18 07:20 98.1 F 61 16 10/09/18 04:00 99.0 F 69 16 BP Pulse Ox Pulse Ox Pulse Ox 10/09/18 11:36 157/70 H 98 10/09/18 08:45 96 95 10/09/18 07:20 157/70 H 98 10/09/18 04:00 146/65 H 96 Weight 144 lb 10/08/18 10/09/18 10/10/18 06:59 06:59 06:59 Intake Total 800 1250 Output Total 1400 3600 Balance -600 -2350 - Physical Examination General/Neuro: alert & oriented x3 Neck: no JVD present Lungs: CTA (diminished at bases) Heart: RRR Abdomen: soft Extremities: other: (2+ pitting BLE edmea) - Telemetry Telemetry Rhythm: SR A paced - Labs Result Diagrams: 10/10/18 04:44 10/10/18 04:44 Troponin/CKMB Troponin I Less than 0.010 ng/mL (< 0.028) 10/07/18 00:44 - Assessment/Plan 1. Acute on chronic diastolic HF - 3600ml outpt yesterday with Metolazone x1 dose; Lasix 40mg IV was decreased from BID to qd; On coreg and Losartan 2. HTN - start Nprvasc 5mg (instead of 10mg qd) 3. Hx of PM placement - 4. Severe /MR - Plan for cath to determine the gradient and degree of stenosis 5. Hyponatremia - unchanged MAR reviewed * Echo showed EF 50-55%, diastolic dysfunction, mildly dilated LA, mild ERA, severe MR, severe with valve area 0.75mmHg, mild TR, mild CO, and Lt plural effusion. Pt.seen and eval.by me.I agreewithnthe A/P by the ASSISTANT PROFESSOR OF BIOCHEMISTRY.Consider cardiac cath.I have re-evaluated the echo and I do not think the is severe.it is likely moderate at the worst.gjm Review of Systems - Review of Systems Constitutional: reports: no symptoms reported EENTM: reports: no symptoms reported Respiratory: reports: no symptoms reported Cardiac (ROS): reports: no symptoms reported ABD/GI: reports: no symptoms reported : reports: no symptoms reported Musculoskeletal: reports: no symptoms reported
[2018-10-09] MEDS ORDERED: Amlodipine 5 MG TAB PO SCH (14:00)
--- NOTE | 2018-10-09 17:22 | PDOC.PN ---
- Subjective Encounter Start Date: 10/09/18 Encounter Start Time: 11:30 Patient seen and examined for CHF. SOB improving. No CP. No new complaints. No overnight events - Objective Resuscitation Status - Order Detail: 10/07/18 00:51 Resuscitation Status Routine Resuscitation Status: FULL: Full Resuscitation MAR Reviewed: Yes Vital Signs & Weight: Vital Signs (12 hours) Temp Pulse Pulse Pulse Resp BP BP 10/09/18 16:08 98.2 F 60 18 10/09/18 14:15 61 10/09/18 11:36 99.3 F 61 16 10/09/18 08:45 63 64 158/70 H 158/71 H 10/09/18 07:20 98.1 F 61 16 BP Pulse Ox Pulse Ox Pulse Ox 10/09/18 16:08 140/63 94 L 10/09/18 14:15 10/09/18 11:36 157/70 H 98 10/09/18 08:45 96 95 10/09/18 07:20 157/70 H 98 Weight Weight 144 lb I&O: 10/08/18 10/09/18 10/10/18 06:59 06:59 06:59 Intake Total 800 1250 Output Total 1400 3600 Balance -600 -2350 Result Diagrams: 10/08/18 04:19 10/08/18 04:19 EKG Reviewed by me: Yes (Tele paced) Phys Exam - Physical Examination Constitutional: NAD Respiratory: no wheezing, no rhonchi few rales at bases Cardiovascular: RRR, no rub Gastrointestinal: soft, non-tender, positive bowel sounds Dx/Plan - Plan DVT proph w/lovenox, DVT proph w/SCDs IMPRESSION: 1. Acute on chronic diastolic heart failure exacerbation. ACC stage C. 2. Severe /Severe MR 3. Hypertension. 4. Sick sinus syndrome, status post recent pacemaker placement. 5. Chronic kidney disease, stage 3. 6. Hyponatremia. 7. Metabolic acidosis. 8. Chronic anemia. 9. Hyperlipidemia. 10. Gastroesophageal reflux disease. 11. Recent UTI - on Macrobid for 3 months per primary Urologist. PLAN: Cont IV diuretics - Lasix reduced to daily Amlodipine started Cath in AM Cont other meds as below AM labs Review of Systems - Review of Systems Respiratory: SOB with Excertion. negative: Cough, Dry, Shortness of Breath, Hemoptysis, Pleuritic Pain, Sputum, Wheezing Cardiovascular: negative: chest pain, palpitations, orthopnea, paroxysmal nocturnal dyspnea, edema, light headedness, other - Medications/Allergies Allergies/Adverse Reactions: Allergies Allergy/AdvReac Type Severity Reaction Status Date / Time cephalexin [From Keflex] Allergy Verified 11/23/17 02:14 codeine Allergy Verified 11/23/17 02:14 Penicillins Allergy Verified 11/23/17 02:14 Sulfa (Sulfonamide Allergy Verified 11/23/17 02:14 Antibiotics) Medications: Current Medications Acetaminophen (Tylenol) 650 mg PO Q4H PRN PRN Reason: Headache/Fever/Mild Pain (1-3) Last Admin: 10/08/18 20:18 Dose: 650 mg Amlodipine Besylate (Norvasc) 5 mg PO DAILY [facility] Aspirin (Aspirin) 325 mg PO QAM-[facility] Last Admin: 10/09/18 10:10 Dose: 325 mg Calcium Carbonate (Tums) 1,000 mg PO Q4H PRN PRN Reason: Heartburn or Indigestion [facility] Last Admin: 10/09/18 10:10 Dose: 6.25 mg Enoxaparin Sodium (Lovenox) 40 mg SC 0900 [facility] Stop: 10/09/18 21:01 Last Admin: 10/09/18 10:10 Dose: 40 mg Furosemide (Lasix) 40 mg SLOW IVP DAILY [facility] Losartan Potassium (Cozaar) 25 mg PO DAILY [facility] Last Admin: 10/09/18 10:10 Dose: 25 mg Miscellaneous Information (Communication Order-Pharmacy) 0 each FS ONE [facility] Stop: 10/10/18 10:31 Nitrofurantoin Macrocrystals (Macrobid) 100 mg PO BID [facility] Ondansetron HCl (Zofran Odt) 4 mg PO Q6H PRN PRN Reason: Nausea/Vomiting Last Admin: 10/07/18 14:51 Dose: 4 mg Ondansetron HCl (Zofran) 4 mg IVP Q6H PRN PRN Reason: Nausea/Vomiting Pantoprazole Sodium (Protonix) 40 mg PO DAILY [facility] Last Admin: 10/09/18 10:10 Dose: 40 mg Senna/Docusate Sodium (Senokot S) 1 tab PO BID [facility] Last Admin: 10/09/18 10:13 Dose: Not Given
[2018-10-09] MEDS: Acetaminophen 325 MG TAB PO PRN (18:22)
[2018-10-09] MEDS: Nitrofurantoin Monohyd/M-Cryst 100 MG CAP PO SCH (20:46)
[2018-10-10] MEDS: Acetaminophen 325 MG TAB PO PRN ×3 (02:02→21:36)
[2018-10-10 05:43] LABS: #Eosinphils 0.1 thou/uL (0.0-0.7); #Lymphocytes 2.6 thou/uL (1.20-3.40); #Monocytes 0.9 thou/uL (0.11-0.59); #Neutrophils 5.1 thou/uL (1.40-6.50); %Basophils 0.3 % (0.0-1.0); %Lymphocytes 30.1 % (21.0-51.0); %Monocytes 9.9 % (0.0-10.0); %Neutrophils 58.7 % (42.0-75.0); Hemoglobin 9.1 g/dL (12.0-16.0); Mean Corpuscular HGB CONC 32.3 g/dL (32.0-36.0); Mean Corpuscular Hemoglobin 27.6 pg (27.0-31.0); Mean Corpuscular Volume 85.7 fL (78.0-98.0); Mean Platelet Volume 7.6 fL (7.4-10.4); Platelet Count 322 thou/uL (130-400); RBC Distribution Width 14.7 % (11.5-14.5); White Blood Cell (WBC) Count 8.7 thou/uL (4.8-10.8)
[2018-10-10] MEDS: Nitrofurantoin Monohyd/M-Cryst 100 MG CAP PO SCH ×2 (05:53→21:32)
[2018-10-10 05:54] LABS: Anion Gap 12 mmol/L (10-20); BUN (Urea Nitrogen) 15 mg/dL (9.8-20.1); Calc. Creatinine Clearance 37 mL/min (70-130); Calcium 8.8 mg/dL (7.8-10.44); Carbon Dioxide 31 mmol/L (23-31); Chloride 92 mmol/L (98-107); Estimated GFR-MDRD 49; Glucose 97 mg/dL (83-110); Magnesium 2.2 mg/dL (1.6-2.6); Potassium 3.9 mmol/L (3.5-5.1); Sodium 131 mmol/L (136-145)
[2018-10-10] MEDS: Aspirin 325 MG TAB PO SCH (05:54)
[2018-10-10] MEDS: Carvedilol 6.25 MG TAB PO SCH ×2 (05:54→15:59)
[2018-10-10] MEDS: Losartan 25 MG TAB PO SCH (05:54)
[2018-10-10] MEDS: Amlodipine 5 MG TAB PO SCH (05:55)
[2018-10-10] MEDS ORDERED: Furosemide 40 MG TAB PO SCH (08:45)
--- NOTE | 2018-10-10 08:53 | PDOC.CTH ---
Cardiology Progress Note - Subjective The pt seen and examined. No overnight events. No cardiac complaints. The pt is resting well at this moment. - Objective Vital Signs Temp Pulse Resp BP BP Pulse Ox 10/10/18 07:53 98.3 F 66 20 163/72 H 95 10/10/18 05:55 63 157/70 H 10/10/18 05:54 157/70 H 10/10/18 04:16 98.7 F 65 18 157/70 H 95 Weight 138 lb 8 oz 10/09/18 10/10/18 10/11/18 06:59 06:59 06:59 Intake Total 1250 1390 Output Total 3600 2900 Balance -2350 -1510 - Physical Examination General/Neuro: alert & oriented x3 Neck: no JVD present Lungs: CTA Heart: RRR Abdomen: soft Extremities: other: (1-2+ pitting BLE edema) - Telemetry Telemetry Rhythm: SR A paced - Labs Result Diagrams: 10/10/18 04:44 10/10/18 04:44 Troponin/CKMB Troponin I Less than 0.010 ng/mL (< 0.028) 10/07/18 00:44 - Assessment/Plan 1. Acute on chronic diastolic HF - 2900ml outpt yesterday with Lasix 40mg IV qd ; On coreg and Losartan 2. HTN - Increase coreg from 6.25mg to 12.5mg BID from this AM. 3. Hx of PM placement - 4. Severe /MR - Holding for cath to determine the gradient and degree of stenosis (due to Hgb <10) 5. Hyponatremia - unchanged MAR reviewed * Echo showed EF 50-55%, diastolic dysfunction, mildly dilated LA, mild ERA, severe MR, severe with valve area 0.75mmHg, mild TR, mild SD, and Lt plural effusion. * From Cardiac standpoint, the pt is stable to d/c home. The pt will f/u with ' office within 10 days. Possible Cath for further evaluation of valve as outpt. * F/u with CHF clinic Pt.seen and eval.by me.I agreewith the A/P by the DIVER'S TENDER.I had a long discussion with her this AM and explained that I do not think the valve is severely stenosed. Due to her age and anemia and good response tomedicalmanagement I think it is best tocontinue medicaltreatment and follow her closely.Should she become symptomatic again then consider cath.She is not a good candidate for AVR and MVR and possible CABG.The best scenario wouldbe TAVR if she decompesates and if the AV has mod-severe stenosis. Review of Systems - Review of Systems Constitutional: reports: no symptoms reported EENTM: reports: no symptoms reported Respiratory: reports: no symptoms reported Cardiac (ROS): reports: no symptoms reported ABD/GI: reports: no symptoms reported : reports: no symptoms reported Musculoskeletal: reports: no symptoms reported
[2018-10-10] MEDS: Senokot S 8.6-50 MG TAB PO SCH ×2 (08:54→21:33)
[2018-10-10] MEDS ORDERED: Carvedilol 6.25 MG TAB PO SCH (09:00)
[2018-10-10] MEDS ORDERED: Furosemide 40 MG/4 ML VIAL SLOW IVP SCH (09:00)
--- NOTE | 2018-10-10 12:12 | CON ---
DATE OF CONSULTATION: 10/07/2018 Please refer to the notes already dictated by nurse practitioner, Pham Harrell. INDICATION FOR CONSULTATION: Congestive heart failure. HISTORY OF PRESENT ILLNESS: This is an 88-year-old female who underwent pacemaker insertion approximately a month ago, who has been doing relatively well, but had increasing shortness of breath at home and more fatigued and had continuation of urinary tract infection. She was brought to the emergency room and was found to have bilateral pleural effusion, congestive heart failure signs on the chest x-ray as well as elevated BNP. Her cardiac enzymes are negative. She has a history of junctional rhythm with severe bradycardia, which necessitated a pacemaker a month ago. She has hypertension, hyperlipidemia, and osteoporosis. She has had no significant coronary artery disease that I am aware of. She was doing relatively well until she became more congested. She also has some peripheral vascular disease with bilateral plaque in the carotid arteries less than 50%. She had an echocardiogram previously, which showed an ejection fraction about 60%. She had a repeat echocardiogram today, which shows normal ejection fraction, what appears to be severe aortic valve stenosis. However, this does not sound like critical on the physical examination. She also has severe mitral valve regurgitation, which may be exacerbating her congestive heart failure. She also has what appears to be diastolic dysfunction. At this time, we will continue her medications. We will try IV diuretics. If this is unsuccessful because she also has hyponatremia, then we will need to try other methods to diurese the patient. We may need to try Samsca, which is tolvaptan if she remains hyponatremic. At this time, she denies any chest pain, and she does have some lower extremity edema and she also had shortness of breath. PHYSICAL EXAMINATION: VITAL SIGNS: Blood pressure 150/66, O2 saturation is 93% to 95%. She is afebrile. Heart rates in the 60s show some pacing A-paced and V-sensed, and respiratory rate about 20. HEENT: Unremarkable. Carotids show decreased carotid pulse on the right side, otherwise it is within normal limits. CHEST: Has decreased breath sounds one-third of the way up posteriorly. No rales or rhonchi were noted. CARDIOVASCULAR: Reveals a systolic murmur at the upper sternal border and also at the apex. She has well-healed surgical incision over the left infraclavicular area after pacemaker insertion. The site looks good. Regular rate and rhythm, otherwise. ABDOMEN: Soft and nontender. EXTREMITIES: Showed 1+ lower extremity edema. Pedal pulses are difficult to palpate. NEUROLOGIC: She appears to be fully intact. SKIN: Warm and dry. IMAGING STUDIES: Chest x-ray showed mild pleural effusions, evidence of congestive heart failure. LABORATORY DATA: Shows sodium of 129; potassium was 4.6, early it was 5.1; chloride 96, bicarb is 21, BUN 17, creatinine is 0.94, and blood sugar is 109. Troponin Is are negative and her BNP was elevated at 1160. IMPRESSION: 1. Congestive heart failure, which is most likely diastolic in nature. I would agree with the present management with IV diuretics. If this is unsuccessful, then we may need to try the tolvaptan if she becomes more hyponatremic. Otherwise, we will continue with her medications. 2. 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 This remains stable. She is pacing in the atrium and sensing in the ventricle. 3. What appears to be on the echocardiogram aortic valve stenosis. We will follow this. She may eventually need to undergo a transesophageal echocardiogram for further evaluation. She also has severe mitral valve regurgitation, which may be exacerbated by the aortic valve stenosis. Given her age, the best solution if she needs it would be to undergo a transcatheter aortic valve replacement and possible mitral valve clip repair due to the severe mitral valve stenosis. However, if the aortic valve is significantly stenosed and relieving this would certainly improve the mitral valve regurgitation. 4. What appears to be chronic urinary tract infections. She will continue on the antibiotics. We will be more than happy to continue to follow the patient with you and if she does not improve, then further recommendations will follow. Job ID: [id number]
--- NOTE | 2018-10-10 13:59 | PDOC.PN ---
- Subjective Encounter Start Date: 10/10/18 Encounter Start Time: 10:30 Patient seen and examined for CHF. SOB improving. No CP. No new complaints. No overnight events - Objective Resuscitation Status - Order Detail: 10/07/18 00:51 Resuscitation Status Routine Resuscitation Status: FULL: Full Resuscitation MAR Reviewed: Yes Vital Signs & Weight: Vital Signs (12 hours) Temp Pulse Pulse Pulse Resp BP BP 10/10/18 11:58 98.1 F 65 16 10/10/18 10:25 68 65 152/66 H 10/10/18 10:07 163/72 H 10/10/18 08:00 10/10/18 07:53 98.3 F 66 20 10/10/18 05:55 63 157/70 H 10/10/18 05:54 157/70 H 10/10/18 04:16 98.7 F 65 18 BP BP Pulse Ox Pulse Ox Pulse Ox 10/10/18 11:58 124/61 98 10/10/18 10:25 145/65 H 100 98 10/10/18 10:07 10/10/18 08:00 95 10/10/18 07:53 163/72 H 95 10/10/18 05:55 10/10/18 05:54 10/10/18 04:16 157/70 H 95 Weight Weight 138 lb 8 oz I&O: 10/09/18 10/10/18 10/11/18 06:59 06:59 06:59 Intake Total 1250 1390 Output Total 3600 2900 Balance -2350 -1510 Result Diagrams: 10/10/18 04:44 10/10/18 04:44 EKG Reviewed by me: Yes (Tele SR) Phys Exam - Physical Examination Constitutional: NAD Respiratory: no wheezing, no rhonchi Cardiovascular: RRR, no rub Gastrointestinal: soft, non-tender, positive bowel sounds Musculoskeletal: edema present (improving) Neurological: moves all 4 limbs Dx/Plan - Plan DVT proph w/SCDs IMPRESSION: 1. Acute on chronic diastolic heart failure exacerbation. ACC stage C. improving 2. Severe /Severe MR. 3. Hypertension. 4. Sick sinus syndrome, status post recent pacemaker placement. 5. Chronic kidney disease, stage 3. 6. Hyponatremia. 7. Metabolic acidosis. 8. Chronic anemia. 9. Hyperlipidemia. 10. Gastroesophageal reflux disease. 11. Recent UTI - on Macrobid for 3 months per primary Urologist. PLAN: Change Lasix to PO Cath on hold per Cardiology due to Anemia Cont Coreg/Amlodipine Check iron profile Cont other meds as below AM labs DC in 24 hr if stable Review of Systems - Review of Systems Respiratory: negative: Cough, Dry, Shortness of Breath, Hemoptysis, SOB with Excertion, Pleuritic Pain, Sputum, Wheezing Cardiovascular: negative: chest pain, palpitations, orthopnea, paroxysmal nocturnal dyspnea, edema, light headedness, other Gastrointestinal: negative: Nausea, Vomiting, Abdominal Pain, Diarrhea, Constipation, Melena, Hematochezia, Other - Medications/Allergies Allergies/Adverse Reactions: Allergies Allergy/AdvReac Type Severity Reaction Status Date / Time cephalexin [From Keflex] Allergy Verified 11/23/17 02:14 codeine Allergy Verified 11/23/17 02:14 Penicillins Allergy Verified 11/23/17 02:14 Sulfa (Sulfonamide Allergy Verified 11/23/17 02:14 Antibiotics) Medications: Current Medications Acetaminophen (Tylenol) 650 mg PO Q4H PRN PRN Reason: Headache/Fever/Mild Pain (1-3) Last Admin: 10/10/18 02:02 Dose: 650 mg Amlodipine Besylate (Norvasc) 5 mg PO DAILY [facility] Last Admin: 10/10/18 05:55 Dose: 5 mg Aspirin (Aspirin) 325 mg PO QAM-[facility] [place] Last Admin: 10/10/18 05:54 Dose: 325 mg Calcium Carbonate (Tums) 1,000 mg PO Q4H PRN PRN Reason: Heartburn or Indigestion Carvedilol (Coreg) 12.5 mg PO BID-[facility] [place] Ferrous Sulfate (Feosol) 325 mg PO BID-[facility] [place] Furosemide (Lasix) 40 mg PO DAILY-[facility] Losartan Potassium (Cozaar) 25 mg PO DAILY [facility] Last Admin: 10/10/18 05:54 Dose: 25 mg Nitrofurantoin Macrocrystals (Macrobid) 100 mg PO BID [facility] Last Admin: 10/10/18 05:53 Dose: 100 mg Ondansetron HCl (Zofran Odt) 4 mg PO Q6H PRN PRN Reason: Nausea/Vomiting Last Admin: 10/07/18 14:51 Dose: 4 mg Ondansetron HCl (Zofran) 4 mg IVP Q6H PRN PRN Reason: Nausea/Vomiting Pantoprazole Sodium (Protonix) 40 mg PO DAILY [facility] Last Admin: 10/10/18 05:56 Dose: 40 mg Senna/Docusate Sodium (Senokot S) 1 tab PO BID [facility] Last Admin: 10/10/18 08:54 Dose: Not Given
[2018-10-10] MEDS: Ferrous Sulfate 325 MG TAB PO SCH (15:59)
[2018-10-11 00:03] VITALS: TEMP 98.2
[2018-10-11 07:13] LABS: Hemoglobin 10.1 g/dL (12.0-16.0); Platelet Count 337 thou/uL (130-400)
[2018-10-11 07:25] LABS: Anion Gap 15 mmol/L (10-20); BUN (Urea Nitrogen) 14 mg/dL (9.8-20.1); Calc. Creatinine Clearance 39 mL/min (70-130); Calcium 9.3 mg/dL (7.8-10.44); Carbon Dioxide 28 mmol/L (23-31); Chloride 92 mmol/L (98-107); Estimated GFR-MDRD 51; Glucose 99 mg/dL (83-110); Iron 27 ug/dL (50-170); Iron Binding Capacity, Total 214 mcg/dL (265-497); Potassium 3.6 mmol/L (3.5-5.1); Sodium 131 mmol/L (136-145)
[2018-10-11] MEDS ORDERED: Furosemide 40 MG TAB PO SCH (07:30)
[2018-10-11 07:57] LABS: Folate (Folic Acid) 11.9 ng/mL (7.0-31.4)
[2018-10-11] MEDS: Ferrous Sulfate 325 MG TAB PO SCH (08:55)
[2018-10-11] MEDS: Losartan 25 MG TAB PO SCH (08:55)
[2018-10-11] MEDS: Aspirin 325 MG TAB PO SCH (08:55)
[2018-10-11] MEDS: Carvedilol 6.25 MG TAB PO SCH (08:55)
[2018-10-11] MEDS: Nitrofurantoin Monohyd/M-Cryst 100 MG CAP PO SCH (08:55)
[2018-10-11] MEDS: Amlodipine 5 MG TAB PO SCH (08:55)
[2018-10-11] MEDS: Senokot S 8.6-50 MG TAB PO SCH (08:56)
--- NOTE | 2018-10-11 09:10 | PDOC.CTH ---
Cardiology Progress Note - Subjective The pt seen and examined. No overnight events. No cardiac complaints. - Objective Vital Signs Temp Pulse Resp BP Pulse Ox 10/11/18 08:55 69 10/11/18 07:43 98.2 F 69 16 150/69 H 96 10/11/18 04:00 68 18 155/70 H 95 10/10/18 23:15 98.2 F 63 18 155/67 H 95 Weight 136 lb 8 oz 10/10/18 10/11/18 10/12/18 06:59 06:59 06:59 Intake Total 1390 Output Total 2900 Balance -1510 - Physical Examination General/Neuro: alert & oriented x3 Neck: no JVD present Lungs: CTA Heart: RRR Abdomen: soft Extremities: other: (No edema) - Telemetry Telemetry Rhythm: SR - Labs Result Diagrams: 10/11/18 06:55 10/11/18 06:55 Troponin/CKMB Troponin I Less than 0.010 ng/mL (< 0.028) 10/07/18 00:44 - Assessment/Plan 1. Acute on chronic diastolic HF - improved with Lasix 40mg PO qd; On coreg and Losartan 2. HTN - Increase losartan from 25mg to 50mg qd from this AM. 3. Hx of PM placement - 4. Severe /MR - Holding for cath to determine the gradient and degree of stenosis (due to Hgb <10) and the pt is stable for now. 5. Hyponatremia - unchanged MAR reviewed * Echo showed EF 50-55%, diastolic dysfunction, mildly dilated LA, mild ERA, severe MR, severe with valve area 0.75mmHg, mild TR, mild WI, and Lt plural effusion. * From Cardiac standpoint, the pt is stable to d/c home. The pt will f/u with ' office within 10 days. Possible Cath for further evaluation of valve as outpt. * F/u with CHF clinic Pt.seen and eval.by me.I agreewith the A/P by the DOPE AND FABRIC WORKER.I had a long discussion with her this AM and explained that I do not think the valve is severely stenosed. Due to her age and anemia. Since she has good response to medical management, to continue medical treatment and follow her closely. Should she become symptomatic again then consider cath. She is not a good candidate for AVR and MVR and possible CABG. The best scenario would be TAVR if she decompesates and if the AV has mod-severe stenosis. Review of Systems - Review of Systems Constitutional: reports: no symptoms reported EENTM: reports: no symptoms reported Respiratory: reports: no symptoms reported Cardiac (ROS): reports: no symptoms reported ABD/GI: reports: no symptoms reported : reports: no symptoms reported Musculoskeletal: reports: no symptoms reported
[2018-10-11] MEDS ORDERED: Losartan 25 MG TAB PO SCH (10:00)
[2018-10-11] MEDS: Acetaminophen 325 MG TAB PO PRN (13:02)
[2018-10-11 13:20] VITALS: BP 153/69
--- NOTE | 2018-10-11 17:43 | DIS ---
DATE OF ADMISSION: 10/08/2018 DATE OF DISCHARGE: 10/11/2018 DISCHARGE DISPOSITION: Home. DISCHARGE FOLLOWUP: 1. Follow up with primary care physician, Dr. Silverman in 1 week. 2. Follow up with , Cardiology next week. 3. Follow up with Hematology, Dr. Joe Greco in 1 to 2 weeks for anemia. 4. Follow up with [facility] next week. 5. Basic metabolic profile after 1 to 2 weeks is recommended. DISCHARGE MEDICATIONS: 1. Aspirin 81 mg daily. 2. Gabapentin 300 mg at bedtime. 3. Calcium carbonate 600 mg daily. 4. Protonix 40 mg daily. 5. Pravastatin 40 mg at bedtime. 6. Raloxifene 60 mg daily. 7. Tramadol as needed. 8. Tylenol as needed. 9. Amlodipine 5 mg daily. 10. Carvedilol 12.5 mg b.i.d. 11. Ferrous sulfate 325 mg b.i.d. 12. Lasix 40 mg daily. 13. Losartan 50 mg daily. ALLERGIES: THE PATIENT IS ALLERGIC TO SULFA, PENICILLIN, CODEINE. DIAGNOSTIC TESTS: Echocardiogram showed left ventricular ejection fraction 50% to 55% with diastolic dysfunction, severe mitral regurgitation, and severe aortic stenosis. Hemoglobin on the day of discharge is 10.1. Iron 27, TIBC 214, ferritin 741. Vitamin B12 1369. Folic acid 11.9. TSH 1.9. Urine cultures showed 10,000 to 25,000 mixed skin and enteric trent. INPATIENT SEC REPORTING CONSULTANT: Cardiology, . The patient was seen and examined on the day of discharge. Denies any new complaints. No chest pain, shortness of breath, or palpitations. BRIEF HOSPITAL COURSE: The patient is an 88-year-old female with sick sinus syndrome with recent pacemaker placement, hypertension, and dyslipidemia, presented to the emergency room with shortness of breath. Workup was consistent with congestive heart failure exacerbation. She showed good improvement with diuretics. Weight on admission was 158 pounds, that improved to 136 pounds. She also received couple of doses of Zaroxolyn. The patient was seen and evaluated by . Echocardiogram was obtained as discussed above. Cardiac catheterization was discussed with the patient, however, due to chronic anemia, this will be probably done as outpatient. recommended follow up with typing office worker. She appears stable for discharge. She has been started on Lasix 40 mg daily. She will follow up with Heart failure Clinic. FINAL DIAGNOSES: 1. Acute on chronic diastolic heart failure exacerbation. 2. Severe aortic stenosis. 3. Severe mitral regurgitation. 4. Hypertension. 5. Sick sinus syndrome, status post recent pacemaker. 6. Chronic kidney disease stage 3. 7. Hyponatremia. 8. Metabolic acidosis. 9. Chronic anemia. 10. Hyperlipidemia. 11. Gastroesophageal reflux disease. 12. Recent urinary tract infection on Macrobid for 3 months per primary urologist. 13. Total time coordinating the discharge of this patient was 32 minutes. PLAN: Plan of care was discussed with the patient in detail. She stated understanding The patient was extensively counseled on congestive heart failure. She will follow up with outpatient cardiac rehabilitation. She declined home health care. Job ID: [id number]
[2018-10-12] MEDS ORDERED: Losartan 25 MG TAB PO SCH (09:00)
== END 2018-10-11 13:39 | disposition home or self-care (01) | DRG 291 ==
LOC: ERS 20:02 → ERHOLD 22:15 → INTOOBSV 22:15 → 2SW 22:38 → OBSVTOIN 10-08 07:24
PROVIDERS: ADMIT Internal Medicine; ATTEND Internal Medicine
DX: I13.0 Hypertensive heart and chronic kidney disease with heart failure and stage 1 through stage 4 chronic kidney disease, or unspecified chronic kidney disease (principal); I50.33 Acute on chronic diastolic (congestive) heart failure; E87.1 Hypo-osmolality and hyponatremia; E87.2 Acidosis; N39.0 Urinary tract infection, site not specified; K21.9 Gastro-esophageal reflux disease without esophagitis; E78.5 Hyperlipidemia, unspecified; M81.0 Age-related osteoporosis without current pathological fracture; N18.3 Chronic kidney disease, stage 3 (moderate); D64.9 Anemia, unspecified; I35.0 Nonrheumatic aortic (valve) stenosis; I34.0 Nonrheumatic mitral (valve) insufficiency; Z96.642 Presence of left artificial hip joint; Z85.828 Personal history of other malignant neoplasm of skin; Z95.0 Presence of cardiac pacemaker; Z90.49 Acquired absence of other specified parts of digestive tract; Z88.1 Allergy status to other antibiotic agents; Z88.0 Allergy status to penicillin; Z88.5 Allergy status to narcotic agent; Z88.2 Allergy status to sulfonamides
CPT/HCPCS: 36415; 71045; 80048; 80053; 82607; 82728; 82746; 83540; 83550; 83735; 84443; 84484; 85014; 85018; 85025; 85049; 87086; 93005; 93306; 93798; 94760; 96374; J1650; J1940; Q0162

== ENCOUNTER 2018-10-26 14:19 | Observation (INO) | payer MEDICARE, OTHER ==
[2018-10-26] MEDS ORDERED: Acetaminophen 650 MG Suppository PR PRN (16:34)
[2018-10-26] MEDS ORDERED: Acetaminophen 325 MG TAB PO PRN ×2 (16:34→22:11)
[2018-10-26] MEDS ORDERED: Ondansetron ODT 4 MG TAB PO PRN (16:34)
[2018-10-26 17:33] LABS: Lactic Acid 1.3 mmol/L (0.5-2.2)
[2018-10-26 18:02] LABS: Hemoglobin 9.8 g/dL (12.0-16.0)
--- NOTE | 2018-10-26 18:23 | HP ---
CHIEF COMPLAINT: Low blood pressure. HISTORY OF PRESENT ILLNESS: Ms. Aburto is a very pleasant 88-year-old woman with a background history of hypertension, CHF, pacemaker, and severe /MR. The patient has come in after noting low blood pressure and feeling occasionally lightheaded. Her systolic BP has been ranging from 80 to 110. She denies any dizziness, presyncope, or syncope. No chest pain. Has not had any shortness of breath. The patient states she was recently instructed by to make adjustments to her medications including cutting down on her Lasix, but she states she is not sure what medications she needed to change. She did not write it down. She has been diligent about checking her blood pressures and 2 days ago, developed watery stools 3 to 4 times a day. She started Imodium and her stools resolved. Despite the loss of fluid and the loose stools, she has continued fluid restriction of 40 mL per day. The patient presented to [facility] and underwent laboratory studies that were unremarkable. She had orthostatic blood pressures done there and had a lying BP of 122/46 with a heart rate of 75, sitting blood pressure of 131/49, and then standing blood pressure of 114/46. She was referred here for further evaluation and management. The patient underwent an echo on october 07, 2018, which showed an EF of 50% to 55%, diastolic dysfunction, severe mitral regurgitation, severe aortic stenosis, mild TR/TX. The patient was cleared from a cardiac standpoint for discharge, but had been advised a possible catheterization as an outpatient to determine the degree of aortic stenosis. The patient seems to still be considering her options. Per , given the fact that she had good response to medical management, it was felt catheterization should be considered only if she become symptomatic as she is not a good candidate for AVR and MVR and possible CABG. Per , she may potentially need a TAVR if she does have [id number] stenosis with decompensation. At this time, it does not appear the patient is exhibiting any decompensated CHF, but potentially dehydrated given the fluid restrictions and recent persistent diarrhea that has since resolved. REVIEW OF SYSTEMS: The patient denies having any fevers, chills, or sweats. She has not experienced any nausea or vomiting. Has been able to tolerate her regular diet and last ate this morning before going in to [place]. She denies any abdominal pain or bloating. Has not noted any lower limb edema. Denies any urinary symptoms such as dysuria, hematuria, urgency, or frequency. Has not noted any blood in her stools. Has not noted any black stools. No cough or hemoptysis. All other review of systems apart from those mentioned above in the HPI are negative. PAST MEDICAL HISTORY: 1. Chronic diastolic heart failure. 2. Severe aortic stenosis. 3. Severe mitral regurgitation. 4. Hypertension. 5. Sick sinus syndrome, status post recent pacemaker. 6. Chronic kidney disease, stage 3. 7. Hyponatremia. 8. Chronic anemia. 9. Hyperlipidemia. 10. Gastroesophageal reflux disease. 11. History of urinary tract infection. PAST SURGICAL HISTORY: 1. Pacemaker placement. 2. Appendectomy. 3. Colonoscopy. 4. Skin biopsy. 5. Left total hip arthroplasty. 6. Multiple other orthopedic procedures. ALLERGIES: 1. KEFLEX. 2. CODEINE. 3. PENICILLIN. 4. SULFA. CURRENT MEDICATIONS: 1. Tramadol. 2. Raloxifene. 3. Pravastatin. 4. Pantoprazole. 5. Losartan. 6. Gabapentin. 7. Furosemide. 8. Ferrous sulfate. 9. Carvedilol. 10. Calcium carbonate. 11. Aspirin. 12. Amlodipine. 13. Acetaminophen. PHYSICAL EXAMINATION: GENERAL: The patient appears well developed, well nourished, is in no acute distress. No significant clinical evidence of dehydration. VITAL SIGNS: Temperature 98.7, pulse 70, respirations 18, blood pressure 124/50, and O2 saturation 95% on room air. HEENT: Normocephalic and atraumatic. Pupils are equal, round, and reactive to light. Sclerae are without icterus. Oropharynx is clear. NECK: Supple. No lymphadenopathy. LUNGS: Clear to auscultation bilaterally without any wheezes, rales, or rhonchi. CARDIAC: Regular rate and rhythm. ABDOMEN: Soft, slightly distended. The patient states this is her baseline. No tenderness, guarding, or rigidity. No renal angle tenderness. Normal bowel sounds present. EXTREMITIES: Without any lower limb edema. No calf tenderness. NEUROLOGIC: Alert and oriented x3. SKIN: Without rash or jaundice. Very mild reduced skin turgor. LABORATORY DATA: White blood count 10.3, hemoglobin 8.8 (last hemoglobin 10.1), hematocrit 28.7, platelets 235. Sodium 130 (chronically low), potassium 4.1, carbon dioxide 20, anion gap 15, BUN 23, creatinine 2.12, last creatinine on 10/11/2018 was 1.02. GFR 22. Last GFR was 51 on 10/11/2018. Glucose 114, calcium 9.4, total bilirubin 0.5. LFTs unremarkable. Troponin 0.010. Urinalysis negative. No imaging data. IMPRESSION AND PLAN: Ms. Aburto is a very pleasant 88-year-old woman presenting with low blood pressure for the last week or so, with a systolic BP ranging from 80s to 110s. Recently advised by to make adjustments to her medications. However, she is in need of clarification as she does not recall what changes were made apart from cutting down on her Lasix. She has felt slightly lightheaded, but that has resolved since her diarrhea has improved. The patient had two days of diarrhea going 3 to 4 times each day. This was resolved with Imodium. Denies any blood in her stools. Given her low hemoglobin, we will check her stool for occult blood. The patient is asymptomatic at present. Has had orthostatic blood pressures checked, which are unremarkable. We will continue to check orthostatic BPs with her routine vital signs. She does have acute on chronic renal insufficiency. Has been given 250 mL of normal saline in the ER. We will continue gentle hydration. Given the one episode of lightheadedness, perhaps would be a good idea to enter her pacemaker. We will check BNP. Also will check lactic acid and CK. Urinalysis is negative. No signs of any respiratory infection. The patient will be admitted to the observation unit. Per previous record, she is DNAR, which she confirms. Her surrogate decision maker is Conchita Perez, her granddaughter. The patient's case was discussed with Dr. Rosa, who agrees with plan of care as described above. Job ID: [id number]
[2018-10-26 18:33] LABS: Iron 19 ug/dL (50-170); Iron Binding Capacity, Total 245 mcg/dL (265-497)
[2018-10-26 19:19] VITALS: BMI 24.7
[2018-10-26 21:06] LABS: Creatinine, Urine 75.94 mg/dL (47-110); Sodium, Urine Less than 20 mmol/L (Not Available)
[2018-10-26] MEDS ORDERED: traMADol HCl 50 MG TAB PO PRN (22:11)
[2018-10-26] MEDS ORDERED: Gabapentin 300 MG CAP PO SCH (22:30)
[2018-10-26] MEDS ORDERED: Atorvastatin Calcium 10 MG TAB PO SCH (22:30)
[2018-10-27 05:25] LABS: #Basophils 0.1 thou/uL (0.0-0.2); #Eosinphils 0.2 thou/uL (0.0-0.7); #Lymphocytes 3.5 thou/uL (1.20-3.40); #Monocytes 1.2 thou/uL (0.11-0.59); #Neutrophils 3.6 thou/uL (1.40-6.50); %Basophils 0.7 % (0.0-1.0); %Eosinophils 2.4 % (0.0-10.0); %Lymphocytes 40.5 % (21.0-51.0); %Monocytes 14.2 % (0.0-10.0); %Neutrophils 42.2 % (42.0-75.0); Hemoglobin 8.4 g/dL (12.0-16.0); Mean Corpuscular HGB CONC 32.5 g/dL (32.0-36.0); Mean Corpuscular Volume 86.2 fL (78.0-98.0); Mean Platelet Volume 8.3 fL (7.4-10.4); Platelet Count 222 thou/uL (130-400); RBC Distribution Width 15.3 % (11.5-14.5); Red Blood Cell (RBC) Count 2.99 mill/uL (4.20-5.40); White Blood Cell (WBC) Count 8.6 thou/uL (4.8-10.8)
[2018-10-27 05:47] LABS: Anion Gap 12 mmol/L (10-20); BUN (Urea Nitrogen) 31 mg/dL (9.8-20.1); Calc. Creatinine Clearance 29 mL/min (70-130); Calcium 8.6 mg/dL (7.8-10.44); Carbon Dioxide 24 mmol/L (23-31); Chloride 102 mmol/L (98-107); Estimated GFR-MDRD 38; Glucose 102 mg/dL (83-110); Potassium 4.4 mmol/L (3.5-5.1); Sodium 134 mmol/L (136-145)
[2018-10-27] MEDS ORDERED: Iron, Sodium Ferric Gluconate 125 MG in Sodium Chloride 0.9% 100 ML IVPB SCH (09:00)
[2018-10-27] MEDS ORDERED: Amlodipine 5 MG TAB PO SCH (09:00)
[2018-10-27] MEDS ORDERED: Famotidine 20 MG TAB PO SCH (09:00)
[2018-10-27] MEDS ORDERED: Aspirin 81 mg Enteric Coated Tablet PO SCH (09:00)
[2018-10-27] MEDS: Ferrous Sulfate 325 MG TAB PO SCH ×2 (09:23→17:38)
[2018-10-27 14:33] LABS: Anion Gap 13 mmol/L (10-20); BUN (Urea Nitrogen) 28 mg/dL (9.8-20.1); Calc. Creatinine Clearance 30 mL/min (70-130); Calcium 8.7 mg/dL (7.8-10.44); Carbon Dioxide 23 mmol/L (23-31); Chloride 102 mmol/L (98-107); Estimated GFR-MDRD 40; Glucose 113 mg/dL (83-110); Potassium 4.5 mmol/L (3.5-5.1); Sodium 133 mmol/L (136-145)
[2018-10-27] MEDS ORDERED: Losartan 25 MG TAB PO SCH (15:15)
[2018-10-27 15:55] VITALS: TEMP 98.5
[2018-10-27] MEDS ORDERED: Carvedilol 6.25 MG TAB PO SCH (17:00)
[2018-10-27 17:39] VITALS: BP 122/57
[2018-10-27] MEDS ORDERED: Gabapentin 300 MG CAP PO SCH (21:00)
[2018-10-27] MEDS ORDERED: Atorvastatin Calcium 10 MG TAB PO SCH (21:00)
[2018-10-28] MEDS ORDERED: Losartan 25 MG TAB PO SCH (09:00)
== END 2018-10-27 18:48 | disposition home or self-care (01) ==
LOC: ERS 14:19 → 2SW 18:30
PROVIDERS: ADMIT Internal Medicine; ATTEND Internal Medicine
DX: I95.9 Hypotension, unspecified (principal); I35.0 Nonrheumatic aortic (valve) stenosis; I49.5 Sick sinus syndrome; K21.9 Gastro-esophageal reflux disease without esophagitis; I34.0 Nonrheumatic mitral (valve) insufficiency; E87.1 Hypo-osmolality and hyponatremia; I13.0 Hypertensive heart and chronic kidney disease with heart failure and stage 1 through stage 4 chronic kidney disease, or unspecified chronic kidney disease; N18.3 Chronic kidney disease, stage 3 (moderate); I50.32 Chronic diastolic (congestive) heart failure; D63.1 Anemia in chronic kidney disease; N17.9 Acute kidney failure, unspecified; E78.5 Hyperlipidemia, unspecified; R19.7 Diarrhea, unspecified; E86.0 Dehydration; Z66 Do not resuscitate; Z79.82 Long term (current) use of aspirin; Z79.899 Other long term (current) drug therapy; Z88.0 Allergy status to penicillin; Z88.1 Allergy status to other antibiotic agents; Z88.2 Allergy status to sulfonamides; Z88.5 Allergy status to narcotic agent; Z95.0 Presence of cardiac pacemaker
CPT/HCPCS: 80048 ×2; 82550; 82570; 82728; 83540; 83550; 83605; 83880; 84300; 85014; 85018; 85025; 96365; 97139; 99285; G0378 ×2; 36415; J2916; J7050

== ENCOUNTER 2021-07-21 14:59 | Inpatient (IN) | payer OTHER ==
[2021-07-21] MEDS ORDERED: Morphine 20 MG/ML Oral Solution (ROXANOL) SL PRN (15:32)
[2021-07-21] MEDS ORDERED: Lorazepam 1 MG TAB PO PRN (15:33)
[2021-07-21] MEDS ORDERED: Scopolamine 1.5 mg/72 hour Patch TOP SCH (16:00)
[2021-07-21] MEDS: Morphine 20 MG/ML Oral Solution (ROXANOL) SL SCH ×2 (16:33→20:35)
[2021-07-21] MEDS: Lorazepam 1 MG TAB PO SCH (18:50)
[2021-07-22] MEDS: Lorazepam 1 MG TAB PO SCH ×5 (00:47→23:27)
[2021-07-22] MEDS ORDERED: Morphine 20 MG/ML Oral Solution (ROXANOL) SL SCH ×2 (01:00→17:00)
[2021-07-22] MEDS ORDERED: Morphine 10 MG/0.5 ML ORAL SYRINGE SL PRN ×2 (01:15→23:54)
[2021-07-22] MEDS: Morphine 10 MG/0.5 ML ORAL SYRINGE SL SCH ×3 (05:46→12:37)
[2021-07-22 08:51] VITALS: TEMP 97.9
[2021-07-22] MEDS ORDERED: Morphine 20 MG/ML Oral Solution (ROXANOL) SL PRN (12:38)
[2021-07-22 16:05] VITALS: BP 93/58
[2021-07-22] MEDS ORDERED: Scopolamine 1.5 mg/72 hour Patch TOP SCH (17:00)
[2021-07-22] MEDS: Atropine Sulfate 1% Ophth Soln 5 ml Bottle PO PRN ×3 (17:55→23:33)
[2021-07-22] MEDS: Morphine 20 MG/ML Oral Solution (ROXANOL) SL SCH ×2 (18:31→20:42)
[2021-07-23] MEDS ORDERED: Morphine 10 MG/0.5 ML ORAL SYRINGE SL SCH
== END 2021-07-23 01:40 | disposition expired | DRG 951 ==
LOC: 2NO 14:59 → T4-B 18:34
PROVIDERS: ADMIT Family Medicine; ATTEND Family Medicine
DX: Z51.5 Encounter for palliative care (principal); I21.4 Non-ST elevation (NSTEMI) myocardial infarction; Z88.1 Allergy status to other antibiotic agents; Z88.6 Allergy status to analgesic agent; Z88.0 Allergy status to penicillin; Z88.2 Allergy status to sulfonamides